=== PATIENT | female | born 1950 | race Caucasian/White ===

== ENCOUNTER 2019-02-16 11:38 | Inpatient (IN) | payer MEDICARE, OTHER ==
[~2019-02-16] VITALS: Ht 167.6 cm; Wt 69.7 kg
[2019-02-16 12:14] LABS: BASO # 0.1 x10^3/uL (0.0-0.2); BASO % 1 % (0-3); EOS # 0.1 x10^3/uL (0.0-0.7); EOS % 1 % (0-3); HEMOGLOBIN 12.8 g/dL (12.0-15.5); LYMPH # 1.5 x10^3/uL (1.0-4.8); LYMPH % 18 % (24-48); MEAN CORPUSCULAR HEMOGLOBIN 28 pg (25-35); MEAN CORPUSCULAR HGB CONC 34 g/dL (31-37); MEAN CORPUSCULAR VOLUME 82 fL (79-100); MONO # 0.5 x10^3/uL (0.0-1.1); MONO % 6 % (0-9); NEUT # 6.5 x10^3uL (1.8-7.7); NEUT % 75 % (31-73); PLATELET COUNT 169 x10^3/uL (140-400); RED BLOOD COUNT 4.65 x10^6/uL (3.50-5.40); RED CELL DISTRIBUTION WIDTH 16.1 % (11.5-14.5); WHITE BLOOD COUNT 8.7 x10^3/uL (4.0-11.0)
[2019-02-16 12:18] LABS: BILIRUBIN,URINE NEG (NEG); CLARITY,URINE CLEAR; COLOR,URINE STRAW; GLUCOSE,URINE NEG (NEG); UROBILINOGEN,URINE 0.2 mg/dL (0.2 mg/dL)
[2019-02-16 12:19] LABS: BACTERIA,URINE 0 /HPF (0-FEW); NITRITE,URINE NEG (NEG); RBC,URINE 0 /HPF (0-2); SQUAMOUS EPITHELIAL CELL,UR OCC /LPF; WBC,URINE 0 /HPF (0-4)
[2019-02-16 12:27] LABS: ALBUMIN 3.6 g/dL (3.4-5.0); ALBUMIN/GLOBULIN RATIO 1.1 (1.0-1.7); CALCIUM 9.1 mg/dL (8.5-10.1); CREATININE 0.8 mg/dL (0.6-1.0); GFR 71.8; MAGNESIUM 1.8 mg/dL (1.8-2.4); POTASSIUM 4.4 mmol/L (3.5-5.1); TOTAL BILIRUBIN 0.4 mg/dL (0.2-1.0); TOTAL PROTEIN 6.8 g/dL (6.4-8.2)
--- NOTE | 2019-02-16 12:33 | PHYS DOC ---
Adult General Chief Complaint Chief Complaint: PSYCH EVALUATION HPI HPI 68-year-old female presents for medical clearance to [facility] admission. Patient was reportedly having severe anxiety, panic attacks, and hallucinating. She has some baseline memory impairment. Patient tells me that she does not have any medical complaints. Review of Systems Review of Systems Constitutional: Denies fever or chills [] Eyes: Denies change in visual acuity, redness, or eye pain [] HENT: Denies nasal congestion or sore throat [] Respiratory: Denies cough or shortness of breath [] Cardiovascular: No additional information not addressed in HPI [] GI: Denies abdominal pain, nausea, vomiting, bloody stools or diarrhea [] : Denies dysuria or hematuria [] Musculoskeletal: Denies back pain or joint pain [] Integument: Denies rash or skin lesions [] Neurologic: Denies headache, focal weakness or sensory changes [] Endocrine: Denies polyuria or polydipsia [] All other systems were reviewed and found to be within normal limits, except as documented in this note. Allergies Allergies Allergies Coded Allergies Type Severity Reaction Last Updated Verified Penicillins Allergy Unknown 02/16/19 Yes Sulfa (Sulfonamide Antibiotics) Allergy Unknown 02/16/19 Yes clindamycin Allergy Unknown 02/16/19 Yes morphine Allergy Unknown 02/16/19 Yes Physical Exam Physical Exam Constitutional: Well developed, well nourished, no acute distress, non-toxic appearance. [] HENT: Normocephalic, atraumatic, bilateral external ears normal, oropharynx moist, no oral exudates, nose normal. [] Eyes: PERRLA, EOMI, conjunctiva normal, no discharge. [] Neck: Normal range of motion, no tenderness, supple, no stridor. [] Cardiovascular:Heart rate regular rhythm, no murmur [] Lungs & Thorax: Bilateral breath sounds clear to auscultation [] Abdomen: Bowel sounds normal, soft, no tenderness, no masses, no pulsatile masses. [] Skin: Warm, dry, no erythema, no rash. [] Back: No tenderness, no CVA tenderness. [] Extremities: Left below the knee amputation with prosthesis[] Neurologic: Alert and oriented X 3, normal motor function, normal sensory function, no focal deficits noted. [] Psychologic: Affect normal, judgement normal, mood normal. [] Current Patient Data Lab Results Laboratory Tests Test 02/16/19 11:41 02/16/19 11:50 Urine Collection Type Unknown Urine Color Straw Urine Clarity Clear Urine pH 6.0 Urine Specific [place] <=1.005 Urine Protein Neg (NEG-TRACE) Urine Glucose (UA) Neg mg/dL (NEG) Urine Ketones (Stick) Neg mg/dL (NEG) Urine Blood Neg (NEG) Urine Nitrite Neg (NEG) Urine Bilirubin Neg (NEG) Urine Urobilinogen Dipstick 0.2 mg/dL (0.2 mg/dL) Urine Leukocyte Esterase Neg (NEG) Urine RBC 0 /HPF (0-2) Urine WBC 0 /HPF (0-4) Urine Squamous Epithelial Cells Occ /LPF Urine Transitional Epithelial Cells Occ /LPF Urine Bacteria 0 /HPF (0-FEW) White Blood Count 8.7 x10^3/uL (4.0-11.0) Red Blood Count 4.65 x10^6/uL (3.50-5.40) Hemoglobin 12.8 g/dL (12.0-15.5) Hematocrit 38.0 % (36.0-47.0) Mean Corpuscular Volume 82 fL (79-100) Mean Corpuscular Hemoglobin 28 pg (25-35) Mean Corpuscular Hemoglobin Concent 34 g/dL (31-37) Red Cell Distribution Width 16.1 % (11.5-14.5) H Platelet Count 169 x10^3/uL (140-400) Neutrophils (%) (Auto) 75 % (31-73) H Lymphocytes (%) (Auto) 18 % (24-48) L Monocytes (%) (Auto) 6 % (0-9) Eosinophils (%) (Auto) 1 % (0-3) Basophils (%) (Auto) 1 % (0-3) Neutrophils # (Auto) 6.5 x10^3uL (1.8-7.7) Lymphocytes # (Auto) 1.5 x10^3/uL (1.0-4.8) Monocytes # (Auto) 0.5 x10^3/uL (0.0-1.1) Eosinophils # (Auto) 0.1 x10^3/uL (0.0-0.7) Basophils # (Auto) 0.1 x10^3/uL (0.0-0.2) Sodium Level 128 mmol/L (136-145) L Potassium Level 4.4 mmol/L (3.5-5.1) Chloride Level 93 mmol/L (98-107) L Carbon Dioxide Level 26 mmol/L (21-32) Anion Gap 9 (6-14) Blood Urea Nitrogen 14 mg/dL (7-20) Creatinine 0.8 mg/dL (0.6-1.0) Estimated GFR (Cockcroft-Gault) 71.8 BUN/Creatinine Ratio 18 (6-20) Glucose Level 95 mg/dL (70-99) Calcium Level 9.1 mg/dL (8.5-10.1) Magnesium Level 1.8 mg/dL (1.8-2.4) Total Bilirubin 0.4 mg/dL (0.2-1.0) Aspartate Amino Transferase (AST) 30 U/L (15-37) Alanine Aminotransferase (ALT) 47 U/L (14-59) Alkaline Phosphatase 94 U/L (46-116) Total Protein 6.8 g/dL (6.4-8.2) Albumin 3.6 g/dL (3.4-5.0) Albumin/Globulin Ratio 1.1 (1.0-1.7) EKG EKG [] Radiology/Procedures Radiology/Procedures [] Course & Med Decision Making Course & Med Decision Making Pertinent Labs and Imaging studies reviewed. (See chart for details) The patient's labs are significant for a low sodium of 128, but no other abnormalities. Her urine is negative for infection. Her EKG is unremarkable. She is medically stable for behavioral health admission. [] Dragon Disclaimer Dragon Disclaimer This electronic medical record was generated, in whole or in part, using a voice recognition dictation system. Departure Departure: Impression: Primary Impression: Medical clearance for psychiatric admission Disposition: ADMITTED INPATIENT Condition: STABLE Referrals: JUDI BENNETT (PCP) LOBITO HALL DO Feb 16, 2019 12:33
[2019-02-16 14:58] VITALS: BP 153/97
[2019-02-16] MEDS ORDERED: MAG HYDROX/AL HYDROX/SIMETH 30 ML ORAL.SUSP PO PRN ×2 (15:00)
[2019-02-16] MEDS ORDERED: ACETAMINOPHEN 325 MG TABLET PO PRN ×3 (15:00→15:45)
[2019-02-16] MEDS ORDERED: METHYL SALICYLATE/MENTHOL TOPICAL OINTMENT 29GM TUBE. TP PRN (15:00)
[2019-02-16] MEDS ORDERED: MAGNESIUM HYDROXIDE 2,400 MG/30 ML ORAL.SUSP. PO PRN (15:00)
[2019-02-16] MEDS ORDERED: GLYC1SUP31 RC (15:26)
[2019-02-16] MEDS ORDERED: DOCU-109 PO (15:26)
[2019-02-16] MEDS ORDERED: SERT25TA PO (15:26)
[2019-02-16] MEDS ORDERED: DONE5TAB56 PO (15:26)
[2019-02-16] MEDS ORDERED: OLOP2.5D EACHEYE (15:26)
[2019-02-16] MEDS ORDERED: POLY17PO5 PO (15:26)
[2019-02-16] MEDS ORDERED: CETI10TA22 PO (15:26)
[2019-02-16] MEDS ORDERED: LEVO50TA5 PO (15:26)
[2019-02-16] MEDS ORDERED: PRAZ5CAP2 PO (15:26)
[2019-02-16] MEDS ORDERED: MULT1TAB52 PO (15:26)
[2019-02-16] MEDS ORDERED: FAMO-63 PO (15:26)
[2019-02-16] MEDS ORDERED: RISP2TAB33 PO (15:26)
[2019-02-16] MEDS ORDERED: ALEN70TA3 PO (15:26)
[2019-02-16] MEDS ORDERED: FLUT9.9S NS (15:26)
[2019-02-16] MEDS ORDERED: MOME17SP NS (15:26)
[2019-02-16] MEDS ORDERED: CALC-30 PO (15:26)
[2019-02-16] MEDS ORDERED: MAG355OR12 PO (15:26)
[2019-02-16] MEDS ORDERED: MONT10TA9 PO (15:26)
[2019-02-16] MEDS ORDERED: NAPR-514 PO (15:26)
[2019-02-16] MEDS ORDERED: CLON0.5T11 PO ×2 (15:26)
[2019-02-16] MEDS ORDERED: ACET325T9 PO (15:26)
[2019-02-16] MEDS ORDERED: FLUO10CA13 PO (15:26)
[2019-02-16] MEDS ORDERED: TRAZ-120 PO (15:26)
[2019-02-16] MEDS ORDERED: DOCUSATE SODIUM 100 MG CAPSULE PO PRN (16:00)
[2019-02-16 16:03] VITALS: BP 135/83
[2019-02-16] MEDS ORDERED: GLYCERIN ADULT 1 SUPP.RECT. PR PRN (16:15)
[2019-02-16] MEDS: KETOTIFEN FUMARATE 0.025% OPHT SOLUTION BOTTLE. OU SCH (20:20)
[2019-02-16] MEDS: FLUTICASONE 50MCG/NASAL SPRAY 16GM BOTTLE. NS SCH (20:20)
[2019-02-16] MEDS: MONTELUKAST 10 MG TABLET. PO SCH (20:20)
[2019-02-16] MEDS: risperiDONE 2 MG TABLET. PO SCH (20:20)
[2019-02-16] MEDS: traZODone 50 MG TABLET. PO SCH (20:20)
[2019-02-16] MEDS: clonazePAM 0.5 MG TABLET PO SCH (20:20)
[2019-02-16] MEDS: PRAZOSIN 5 MG CAPSULE. PO SCH (20:21)
[2019-02-16] MEDS: PRAZOSIN 1 MG CAPSULE. PO SCH (20:21)
[2019-02-16] MEDS ORDERED: FAMOTIDINE 20 MG TABLET PO PRN (21:00)
--- NOTE | 2019-02-16 21:56 | EKG ---
[address] [address] Test Date: 2019-02-16 Test Time: 12:19:55 Pat Name: INEZ BARRIOS Department: Room: [address] [place] [address] Gender: F Acute Coordinator: : 1950 Requested By: LOBITO HALL Order Number: [id number] Reading MD: Gigi Devine MD Measurements Intervals [place] Rate: 83 P: 59 FL: 180 QRS: 56 QRSD: 70 T: 47 QT: 370 QTc: 435 Interpretive Statements SINUS RHYTHM Electronically Signed On 02-19-2019 10:06:04 CDT by Gigi Devine MD
--- NOTE | 2019-02-16 22:36 | PDOC ---
Exam Note: Denzel Note: Please also refer to the separate dictated note~for this date of service dictated separately. Discussed the patient with Nursing staff reviewed the chart.~Reviewed interim history and current functioning. Reviewed vital signs,~ Labs/ Radiology~and current medications noted below. Continue current treatment with the changes noted in the dictated addendum note Assessment: Vital Signs: Vital Signs Date Time Temp Pulse Resp B/P (MAP) Pulse Ox O2 Delivery O2 Flow Rate FiO2 02/16/19 20:21 68 135/83 02/16/19 16:03 98.3 16 96 Room Air Labs: Laboratory Tests Test 02/16/19 11:41 02/16/19 11:50 Urine Collection Type Unknown Urine Color Straw Urine Clarity Clear Urine pH 6.0 Urine Specific [place] <=1.005 Urine Protein Neg (NEG-TRACE) Urine Glucose (UA) Neg mg/dL (NEG) Urine Ketones (Stick) Neg mg/dL (NEG) Urine Blood Neg (NEG) Urine Nitrite Neg (NEG) Urine Bilirubin Neg (NEG) Urine Urobilinogen Dipstick 0.2 mg/dL (0.2 mg/dL) Urine Leukocyte Esterase Neg (NEG) Urine RBC 0 /HPF (0-2) Urine WBC 0 /HPF (0-4) Urine Squamous Epithelial Cells Occ /LPF Urine Transitional Epithelial Cells Occ /LPF Urine Bacteria 0 /HPF (0-FEW) White Blood Count 8.7 x10^3/uL (4.0-11.0) Red Blood Count 4.65 x10^6/uL (3.50-5.40) Hemoglobin 12.8 g/dL (12.0-15.5) Hematocrit 38.0 % (36.0-47.0) Mean Corpuscular Volume 82 fL (79-100) Mean Corpuscular Hemoglobin 28 pg (25-35) Mean Corpuscular Hemoglobin Concent 34 g/dL (31-37) Red Cell Distribution Width 16.1 % (11.5-14.5) H Platelet Count 169 x10^3/uL (140-400) Neutrophils (%) (Auto) 75 % (31-73) H Lymphocytes (%) (Auto) 18 % (24-48) L Monocytes (%) (Auto) 6 % (0-9) Eosinophils (%) (Auto) 1 % (0-3) Basophils (%) (Auto) 1 % (0-3) Neutrophils # (Auto) 6.5 x10^3uL (1.8-7.7) Lymphocytes # (Auto) 1.5 x10^3/uL (1.0-4.8) Monocytes # (Auto) 0.5 x10^3/uL (0.0-1.1) Eosinophils # (Auto) 0.1 x10^3/uL (0.0-0.7) Basophils # (Auto) 0.1 x10^3/uL (0.0-0.2) Sodium Level 128 mmol/L (136-145) L Potassium Level 4.4 mmol/L (3.5-5.1) Chloride Level 93 mmol/L (98-107) L Carbon Dioxide Level 26 mmol/L (21-32) Anion Gap 9 (6-14) Blood Urea Nitrogen 14 mg/dL (7-20) Creatinine 0.8 mg/dL (0.6-1.0) Estimated GFR (Cockcroft-Gault) 71.8 BUN/Creatinine Ratio 18 (6-20) Glucose Level 95 mg/dL (70-99) Calcium Level 9.1 mg/dL (8.5-10.1) Magnesium Level 1.8 mg/dL (1.8-2.4) Total Bilirubin 0.4 mg/dL (0.2-1.0) Aspartate Amino Transferase (AST) 30 U/L (15-37) Alanine Aminotransferase (ALT) 47 U/L (14-59) Alkaline Phosphatase 94 U/L (46-116) Total Protein 6.8 g/dL (6.4-8.2) Albumin 3.6 g/dL (3.4-5.0) Albumin/Globulin Ratio 1.1 (1.0-1.7) Current Medications: Meds: Current Medications Acetaminophen (Tylenol) 650 mg PRN Q6HRS PRN PO PAIN / TEMP; Start 02/16/19 at 15:00; Stop 02/16/19 at 15:40; Status DC Multi-Ingredient Ointment (Analgesic Fountain) 1 dacia PRN QID PRN TP MUSCLE PAIN; Start 02/16/19 at 15:00 Al Hydroxide/Mg Hydroxide (Mylanta Plus Xs) 15 ml PRN AFTMEALHC PRN PO DYSPEPSIA; Start 02/16/19 at 15:00; Stop 02/16/19 at 15:41; Status DC Magnesium Hydroxide (Milk Of Magnesia) 2,400 mg PRN QHS PRN PO CONSTIPATION; Start 02/16/19 at 15:00 Acetaminophen (Tylenol) 650 mg PRN Q4HRS PRN PO PAIN / TEMP; Start 02/16/19 at 15:00; Stop 02/16/19 at 15:41; Status DC Clonazepam (KlonoPIN) 0.5 mg HS PO Last administered on 02/16/19at 20:20; Start 02/16/19 at 21:00 Clonazepam (KlonoPIN) 0.5 mg PRN Q6HRS PRN PO ANXIETY / AGITATION; Start at 15:00 Al Hydroxide/Mg Hydroxide (Mylanta Plus Xs) 15 ml PRN AFTMEALHC PRN PO DYSPEPSIA; Start 02/16/19 at 15:00 Alendronate Sodium (Fosamax) 70 mg WEEKLY PO ; Start 02/23/19 at 09:00 Calcium/Vitamin D (Oscal D 500mg/ 200uts) 2 tab DAILY PO ; Start 02/17/19 at 09: 00 Cetirizine HCl (ZyrTEC) 10 mg DAILY PO ; Start 02/17/19 at 09:00 Docusate Sodium (Colace) 100 mg PRN Q12HR PRN PO CONSTIPATION; Start 02/16/19 at 16:00 Donepezil HCl (Aricept) 5 mg DAILY PO ; Start 02/17/19 at 09:00 Famotidine (Pepcid) 10 mg PRN Q12HR PRN PO GI UPSET; Start 02/16/19 at 21:00 Fluoxetine HCl (PROzac) 10 mg DAILY PO ; Start 02/17/19 at 09:00 Fluticasone Propionate (Flonase) 2 spray BID NS Last administered on 02/16/19at 20:20; Start 02/16/19 at 21:00 Glycerin (Sani-Supp Adult) 1 supp PRN DAILY PRN [place] CONSTIPATION; Start at 16:15 Levothyroxine Sodium (Synthroid) 50 mcg DAILY06 PO ; Start 02/17/19 at 06:00 Non-Formulary Medication (Mometasone Furoate (Nasonex)) 2 sprays DAILY NS ; Start 02/17/19 at 09:00; Stop 02/17/19 at 09:00; Status DC Montelukast Sodium (Singulair) 10 mg QHS PO Last administered on 02/16/19at 20: 20; Start 02/16/19 at 21:00 Multivitamins/ Calcium (Thera-M Plus) 1 tab DAILY PO ; Start 02/17/19 at 09:00 Naproxen (Naprosyn) 500 mg PRN Q12HR PRN PO PAIN; Start 02/16/19 at 16:15 Ketotifen Fumarate (Zaditor) 1 drop BID OU Last administered on 02/16/19at 20:20 ; Start 02/16/19 at 21:00 Polyethylene Glycol (miraLAX) 17 gm DAILY PO ; Start 02/17/19 at 09:00 Prazosin HCl (Minipress) 5 mg QHS PO Last administered on 02/16/19at 20:21; Start 02/16/19 at 21:00 Risperidone (RisperDAL) 2 mg BID PO Last administered on 02/16/19at 20:20; Start 02/16/19 at 21:00 Sertraline HCl (Zoloft) 25 mg DAILY PO ; Start 02/17/19 at 09:00 Trazodone HCl (Desyrel) 50 mg HS PO Last administered on 02/16/19at 20:20; Start 02/16/19 at 21:00 Acetaminophen (Tylenol) 650 mg PRN Q4HRS PRN PO PAIN / TEMP; Start 02/16/19 at 15:45 Prazosin HCl (Minipress) 2 mg HS PO Last administered on 02/16/19at 20:21; Start 02/16/19 at 21:00 Active Scripts Active Reported Levothyroxine Sodium 50 Mcg Tablet 50 Mcg PO DAILYAC Clonazepam 0.5 Mg Tablet 0.5 Mg PO PRN Q6HRS PRN Laxative Suppository (Glycerin) 1 Each Supp.rect 1 Each RC PRN DAILY PRN Flonase Allergy Relief (Fluticasone Propionate) 9.9 Ml [place].susp 1 Sprays NS BID Pepcid (Famotidine) 20 Mg Tablet 10 Mg PO PRN Q12HR PRN Multivitamins (Multivitamin) 1 Each Tablet 1 Each PO DAILY Colace (Docusate Sodium) 100 Mg Capsule 100 Mg PO PRN Q12HR PRN Clonazepam 0.5 Mg Tablet 0.5 Mg PO HS Calcium 500 + Vit D 400 Tablet (Calcium Carbonate/Vitamin D3) 1 Each Tablet 2 Each PO DAILY Aricept (Donepezil Hcl) 5 Mg Tablet 5 Mg PO DAILY Fosamax (Alendronate Sodium) 70 Mg Tablet 70 Mg PO WEEKLY Zyrtec (Cetirizine Hcl) 10 Mg Tablet 10 Mg PO DAILY Zoloft (Sertraline Hcl) 25 Mg Tablet 25 Mg PO DAILY Tylenol (Acetaminophen) 325 Mg Tablet 650 Mg PO PRN Q4HRS PRN Trazodone Hcl 50 Mg Tablet 50 Mg PO HS Risperdal (Risperidone) 2 Mg Tablet 2 Mg PO BID Prozac (Fluoxetine Hcl) 10 Mg Capsule 10 Mg PO DAILY Prazosin Hcl 5 Mg Capsule 7 Mg PO HS Miralax (Polyethylene Glycol 3350) 17 Gm Powd.pack 1 Packet PO DAILY Pataday (Olopatadine Hcl) 2.5 Ml Drops 1 Drop EACHEYE DAILY Nasonex (Mometasone Furoate) 17 Gm [place].pump 2 Sprays NS DAILY Naproxen 500 Mg Tablet 500 Mg PO PRN Q12HR PRN Montelukast Sodium Tablet (Montelukast Sodium) 10 Mg Tablet 10 Mg PO HS Maalox Maximum Strength Susp (Mag Hydrox/Al Hydrox/Simeth) 355 Ml Oral.susp 15 Ml PO PRN AFTMEALHC PRN I have reviewed the current psychotropics carefully including drug interactions. Risk benefit ratio favors no change other than as noted in my dictated progress note. Diagnosis: Problems: (1) Anxiety disorder (2) Impulse control disorder (3) Schizoaffective disorder, chronic condition with acute exacerbation JT SPARROW MD Feb 16, 2019 22:36
[2019-02-17 02:10] LABS: HEMOGLOBIN A1C 5.1 % (4.8-5.6)
[2019-02-17 05:47] VITALS: BP 122/83
[2019-02-17] MEDS: LEVOTHYROXINE 50 MCG TABLET PO SCH (05:50)
[2019-02-17 07:16] LABS: THYROXINE 8.3 ug/dL (4.5-12.0)
[2019-02-17] MEDS: KETOTIFEN FUMARATE 0.025% OPHT SOLUTION BOTTLE. OU SCH ×2 (08:22→19:37)
[2019-02-17] MEDS: FLUTICASONE 50MCG/NASAL SPRAY 16GM BOTTLE. NS SCH ×2 (08:22→19:38)
[2019-02-17] MEDS: DONEPEZIL HCL 5 MG TABLET. PO SCH (08:22)
[2019-02-17] MEDS: POLYETHYLENE GLYCOL 3350 17 GM PACKET. PO SCH (08:22)
[2019-02-17] MEDS: CETIRIZINE HCL 10 MG TABLET PO SCH (08:23)
[2019-02-17] MEDS: MULTIVITAMIN with MINERAL TABLET. PO SCH (08:23)
[2019-02-17] MEDS: CALCIUM CARB/VIT D3 500/200 TABLET PO SCH (08:23)
[2019-02-17] MEDS: FLUoxetine HCL 10 MG CAPSULE PO SCH (08:23)
[2019-02-17] MEDS: risperiDONE 2 MG TABLET. PO SCH ×2 (08:23→19:36)
[2019-02-17] MEDS ORDERED: SERTRALINE 25 MG TABLET. PO SCH (09:00)
[2019-02-17] MEDS ORDERED: MOMETASONE FUROATE NS SCH (09:00)
--- NOTE | 2019-02-17 10:08 | HP ---
ADMIT DATE: 02/16/2019 PSYCHIATRIC HISTORY/EVALUATION This late entry 02/16/2019 covers elements not covered in my initial note. SUBJECTIVE: Met with the patient evening of 02/16/2019 at length in her room, previously discussed with Kandice Sun, footwear sales coordinator in 2 or 3 occasions with nursing staff including at admission of the patient. IDENTIFYING DATA: The patient is a 68-year-old female referred to us from [facility] by Dr. Tobias Garay, primary care physician, after she failed tele psychiatry services including psychotherapy and psychotropic medication management weekly done at the facility. The patient has been increasingly obsessive, having anxiety, panic attacks with ''no rationalization.'' She has been hallucinating, refusing meds at times, yelling at staff, delusional, having short-term memory impairment. She has failed outpatient psychiatric interventions resulting in this referral. CHIEF COMPLAINT: ''Yes ____." HISTORY OF PRESENT ILLNESS: The patient reportedly has a history of schizoaffective disorder, bipolar type. She complains of increasing panic anxiety, paranoia recently. She states she was on Zyprexa and this was stopped about 8 months back and symptoms have worsened since then. She is requesting to be put back on this. No active suicidal or homicidal ideation. PAST PSYCHIATRIC HISTORY: As above. MEDICAL HISTORY: Positive for hyponatremia, status post falls, hypothyroidism, osteoporosis, artificial left leg, status post fracture injury and secondary infection about 18 years ago. ACCU-CHEKS: None. DIET: Mechanical soft. Takes medications whole. Ambulates with a cane. UA on 02/16/2019 was negative. CODE STATUS: Full code. ALLERGIES: CLINDAMYCIN, MORPHINE, PENICILLIN, SULFA. SOCIAL HISTORY: The patient states a positive family history of depression in father and brother and second cousin. SOCIAL HISTORY: No history of alcohol, drug abuse, physical, sexual or elder abuse. She is not known to be a perpetrator. 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 REACTION TO HOSPITALIZATION: The patient is accepting of this. ASSETS: The patient is cognitively intact, supportive living at the above facility. REVIEW OF SYSTEMS: Ambulation impaired. No CV, , pulmonary, eye, ENT system symptoms on review. I met with her in her room. She is lying in bed, did set up and contract with me, but is anxious, restless, distractible, constantly moving, rubbing her face intermittently. MENTAL STATUS EXAMINATION: The patient is oriented to herself and situation. She knew the president was president Luz Elena, was aware of the date 02/16/2019. Speech has some latency, coherent. Abstraction fair, computation is impaired, language function intact, attention span short. Mood and affect is somewhat withdrawn and quite paranoid, suspicious. No suicidal or homicidal ideation. LABORATORY DATA: Reviewed. IMPRESSION: Possible bipolar 1 disorder, mixed with psychotic features; anxiety disorder, unspecified; impulse control disorder, unspecified; mild cognitive impairment. Rest as above. PLAN: Admit to the Geropsychiatry Unit at [facility]. I will see the patient daily individually from a psychiatric standpoint, medical status followup with Dr. Edwards. We will observe the patient's baseline then adjust her psychotropics. She is currently on Risperdal 2 mg b.i.d., Zoloft 25 mg a day, Prozac 10 mg a day, Aricept 5 mg a day, trazodone 50 mg at bedtime, Klonopin 0.5 mg at bedtime plus p.r.n. We will go ahead and stop the Zoloft to avoid using two SSRIs in combination, may consider a mood stabilizer and adjusting the Risperdal. Estimated length of stay is 10-12 days. DISPOSITION: Plans back to [facility] at discharge. JT SPARROW MD DR: MINGO/pilar JOB#: [id number] / [id number]
[2019-02-17 10:43] LABS: THYROID STIM HORMONE (TSH) 2.001 uIU/mL (0.358-3.740)
[2019-02-17 16:16] VITALS: BP 113/71
--- NOTE | 2019-02-17 16:57 | CONS ---
DATE OF CONSULTATION: REASON FOR CONSULTATION: Medical management. HISTORY OF PRESENT ILLNESS: The patient is a 68-year-old female patient, who resides at [facility] and who was referred [facility] by her primary care physician after she has failed tele psychiatry services including psychotherapy and psychotropic medication management weekly done at the facility. The patient has been increasingly obsessive, having anxiety, panic attack with no rationalization. She has been hallucinating, refusing medication at that time, yelling at staff, delusional, having short-term memory impairment. She has failed outpatient psychiatric 7 days intervention and therefore she was admitted for inpatient psychiatric stabilization. PAST PSYCHIATRIC HISTORY: Significant for the fact that she has a Schizoaffective disorder, bipolar type. She has been also complaining of increasing panic attack, anxiety, and paranoia recently. According to the patient, she was on Zyprexa that was stopped and her symptoms have worsened since then. There was no active suicidal or homicidal ideation. PAST MEDICAL HISTORY: Significant for hyponatremia, hypothyroidism, glaucoma, gastroesophageal reflux disease, osteoporosis, and osteoarthritis. PAST SURGICAL HISTORY: Significant for left below-knee amputation and has an artificial prosthesis. ALLERGIES: She is allergic to CLINDAMYCIN, MORPHINE, PENICILLIN, AND SULFA. FAMILY HISTORY: Noncontributory. SOCIAL HISTORY: She has been a resident at [facility]. She has 3 children of her own. She does not smoke or drink alcohol. She used to be a occupational therapy teacher. MEDICATIONS: She is currently on following medications: She is on cetirizine 10 mg once a day, Aricept 5 mg daily, prazosin 7 mg p.o. at bedtime, naproxen 500 mg every 12 hours as needed, acetaminophen 650 mg every 4 hours, clonazepam 0.5 mg at bedtime, clonazepam 0.5 mg every 6 hours as needed, fluoxetine for Prozac 10 mg once a day, sertraline for Zoloft 25 mg daily, trazodone 50 mg at bedtime. She is on risperidone 2 mg twice a day, calcium carbonate with vitamin D3 two tablets daily. She is on montelukast 10 mg once a day, olopatadine at 1 drop to both eyes daily, Flonase 1 spray to each nostril twice a day, Nasonex 2 sprays to each nostril daily, Maalox 15 mL after meals and bedtime, Colace 100 mg twice a day, Glycerin Suppositories rectally daily p.r.n. for constipation, polyethylene glycol 17 grams daily, famotidine 20 mg twice a day, levothyroxine 50 mcg once a day, multivitamin 1 tablet once a day with alendronate for Fosamax 70 mg once a week. PHYSICAL EXAMINATION: GENERAL: When I examined her, the patient was sitting comfortably in her chair, in no apparent distress. She was pale, but not jaundiced, cyanosis, or thyromegaly. No jugular venous distension. No limb edema. VITAL SIGNS: Her heart rate was 94, blood pressure 122/83, temperature was 98.9, respiratory rate was 18 and oxygen saturation was 94%. HEAD, EYES, NOSE AND THROAT: Showed normocephalic, atraumatic. NECK: Supple. HEART: Showed normal first and second heart sounds with no gallop, rub or murmur. CHEST: Clear to auscultation. No crepitation or rhonchi. ABDOMEN: Distended, soft, nontender. NEUROLOGIC: She is awake, alert, responding appropriately. All cranial nerves intact. EXTREMITIES: She moves extremities without difficulty. She ambulates with a walker. LABORATORY DATA: Her lab work showed a serum sodium of 128, potassium was 4.4, chloride 93, bicarbonate 26, anion gap of 9, BUN 14, creatinine 0.8, estimated GFR was 72 mL per minute. Her glucose was 95, calcium was 9.1. Her hemoglobin A1c was 5.1%. Her magnesium was 1.8. Serum iron 63, TIBC was high at 351 and iron saturation was 18%. Her total bilirubin, AST, ALT, alkaline phosphatase were normal. Total protein was 6.8, albumin 3.6. Her serum triglycerides were 169, total cholesterol 197, LDL was 115, VLDL was 33, HDL was 49 and the ratio was 4. Her TSH was 2 with normal total T4 and total T3. Her white cell count was 8700, hemoglobin 13, hematocrit 38, MCV 82, and platelet count of 169,000. Her urinalysis was essentially unremarkable. Urine was straw colored, clear with a pH of 6, specific gravity 1.005. The urine was negative for protein, glucose, ketones, blood nitrite and leukocyte esterase. There are no rbc's, no wbc's, and no bacteria. IMPRESSION: In summary, this is a 68-year-old female patient, a resident at [facility], who was admitted on account of the patient has been increasingly obsessive, having anxiety, panic attack with no rationalization. She has been hallucinating, refusing meds at times, yelling at staff, delusional, having short-term memory impairment. All this in the background of schizoaffective disorder, bipolar type. She is here for inpatient psychiatric stabilization. Medically, she apparently has chronic hyponatremia, hypothyroidism, osteoporosis, glaucoma and gastroesophageal reflux disease. Her vital signs are stable and reviewed all her medication and this seems to be also well within acceptable range. I will follow all the lab works that are still pending at the time of this dictation and make any necessary recommendation. Thank you, Dr. Barton for allowing me to participate in the care of this patient. CAMRYN ORTEGA MD DR: ESTEFANI/pilar JOB#: [id number] / [id number]
[2019-02-17] MEDS: MONTELUKAST 10 MG TABLET. PO SCH (19:36)
[2019-02-17] MEDS: clonazePAM 0.5 MG TABLET PO SCH (19:36)
[2019-02-17] MEDS: traZODone 50 MG TABLET. PO SCH (19:37)
[2019-02-17] MEDS: PRAZOSIN 5 MG CAPSULE. PO SCH (19:37)
[2019-02-17] MEDS: PRAZOSIN 1 MG CAPSULE. PO SCH (19:37)
--- NOTE | 2019-02-17 23:02 | PDOC ---
Exam Note: Denzel Note: Please also refer to the separate dictated note~for this date of service dictated separately.~Patient seen individually. Discussed the patient with Nursing staff reviewed the chart.~Reviewed interim history and current functioning. Reviewed vital signs,~Labs/ Radiology~and current medications noted below. Continue current treatment with the changes noted in the dictated addendum note Assessment: Vital Signs: Vital Signs Date Time Temp Pulse Resp B/P (MAP) Pulse Ox O2 Delivery O2 Flow Rate FiO2 02/17/19 19:37 69 113/71 02/17/19 16:16 98.0 18 95 02/16/19 16:03 Room Air I&O Intake and Output 02/17/19 07:00 Intake Total 120 ml Balance 120 ml Intake Oral 120 ml Current Medications: Meds: Current Medications Acetaminophen (Tylenol) 650 mg PRN Q6HRS PRN PO PAIN / TEMP; Start 02/16/19 at 15:00; Stop 02/16/19 at 15:40; Status DC Multi-Ingredient Ointment (Analgesic [place]) 1 dacia PRN QID PRN TP MUSCLE PAIN; Start 02/16/19 at 15:00 Al Hydroxide/Mg Hydroxide (Mylanta Plus Xs) 15 ml PRN AFTMEALHC PRN PO DYSPEPSIA; Start 02/16/19 at 15:00; Stop 02/16/19 at 15:41; Status DC Magnesium Hydroxide (Milk Of Magnesia) 2,400 mg PRN QHS PRN PO CONSTIPATION; Start 02/16/19 at 15:00 Acetaminophen (Tylenol) 650 mg PRN Q4HRS PRN PO PAIN / TEMP; Start 02/16/19 at 15:00; Stop 02/16/19 at 15:41; Status DC Clonazepam (KlonoPIN) 0.5 mg HS PO Last administered on 02/17/19at 19:36; Start 02/16/19 at 21:00 Clonazepam (KlonoPIN) 0.5 mg PRN Q6HRS PRN PO ANXIETY / AGITATION; Start at 15:00 Al Hydroxide/Mg Hydroxide (Mylanta Plus Xs) 15 ml PRN AFTMEALHC PRN PO DYSPEPSIA; Start 02/16/19 at 15:00 Alendronate Sodium (Fosamax) 70 mg WEEKLY PO ; Start 02/23/19 at 09:00 Calcium/Vitamin D (Oscal D 500mg/ 200uts) 2 tab DAILY PO Last administered on 08:23; Start 02/17/19 at 09:00 Cetirizine HCl (ZyrTEC) 10 mg DAILY PO Last administered on 02/17/19 08:23; Start 02/17/19 at 09:00 Docusate Sodium (Colace) 100 mg PRN Q12HR PRN PO CONSTIPATION; Start 02/16/19 at 16:00 Donepezil HCl (Aricept) 5 mg DAILY PO Last administered on 02/17/19 08:22; Start 02/17/19 at 09:00 Famotidine (Pepcid) 10 mg PRN Q12HR PRN PO GI UPSET; Start 02/16/19 at 21:00 Fluoxetine HCl (PROzac) 10 mg DAILY PO Last administered on 02/17/19 08:23; Start 02/17/19 at 09:00 Fluticasone Propionate (Flonase) 2 spray BID NS Last administered on 02/17/19 19:38; Start 02/16/19 at 21:00 Glycerin (Sani-Supp Adult) 1 supp PRN DAILY PRN [place] CONSTIPATION; Start at 16:15 Levothyroxine Sodium (Synthroid) 50 mcg DAILY06 PO Last administered on at 05:50; Start 02/17/19 at 06:00 Non-Formulary Medication (Mometasone Furoate (Nasonex)) 2 sprays DAILY NS ; Start 02/17/19 at 09:00; Stop 02/17/19 at 09:00; Status DC Montelukast Sodium (Singulair) 10 mg QHS PO Last administered on 02/17/19 19: 36; Start 02/16/19 at 21:00 Multivitamins/ Calcium (Thera-M Plus) 1 tab DAILY PO Last administered on 08:23; Start 02/17/19 at 09:00 Naproxen (Naprosyn) 500 mg PRN Q12HR PRN PO PAIN; Start 02/16/19 at 16:15 Ketotifen Fumarate (Zaditor) 1 drop BID OU Last administered on 02/17/19at 19:37 ; Start 02/16/19 at 21:00 Polyethylene Glycol (miraLAX) 17 gm DAILY PO Last administered on 02/17/19 08: 22; Start 02/17/19 at 09:00 Prazosin HCl (Minipress) 5 mg QHS PO Last administered on 02/17/19at 19:37; Start 02/16/19 at 21:00 Risperidone (RisperDAL) 2 mg BID PO Last administered on 02/17/19 19:36; Start 02/16/19 at 21:00 Sertraline HCl (Zoloft) 25 mg DAILY PO Last administered on 02/17/19at 08:23; Start 02/17/19 at 09:00; Stop 02/17/19 at 10:17; Status DC Trazodone HCl (Desyrel) 50 mg HS PO Last administered on 02/17/19at 19:37; Start 02/16/19 at 21:00 Acetaminophen (Tylenol) 650 mg PRN Q4HRS PRN PO PAIN / TEMP; Start 02/16/19 at 15:45 Prazosin HCl (Minipress) 2 mg HS PO Last administered on 02/17/19at 19:37; Start 02/16/19 at 21:00 Active Scripts Active Reported Levothyroxine Sodium 50 Mcg Tablet 50 Mcg PO DAILYAC Clonazepam 0.5 Mg Tablet 0.5 Mg PO PRN Q6HRS PRN Laxative Suppository (Glycerin) 1 Each Supp.rect 1 Each RC PRN DAILY PRN Flonase Allergy Relief (Fluticasone Propionate) 9.9 Ml [place].susp 1 Sprays NS BID Pepcid (Famotidine) 20 Mg Tablet 10 Mg PO PRN Q12HR PRN Multivitamins (Multivitamin) 1 Each Tablet 1 Each PO DAILY Colace (Docusate Sodium) 100 Mg Capsule 100 Mg PO PRN Q12HR PRN Clonazepam 0.5 Mg Tablet 0.5 Mg PO HS Calcium 500 + Vit D 400 Tablet (Calcium Carbonate/Vitamin D3) 1 Each Tablet 2 Each PO DAILY Aricept (Donepezil Hcl) 5 Mg Tablet 5 Mg PO DAILY Fosamax (Alendronate Sodium) 70 Mg Tablet 70 Mg PO WEEKLY Zyrtec (Cetirizine Hcl) 10 Mg Tablet 10 Mg PO DAILY Zoloft (Sertraline Hcl) 25 Mg Tablet 25 Mg PO DAILY Tylenol (Acetaminophen) 325 Mg Tablet 650 Mg PO PRN Q4HRS PRN Trazodone Hcl 50 Mg Tablet 50 Mg PO HS Risperdal (Risperidone) 2 Mg Tablet 2 Mg PO BID Prozac (Fluoxetine Hcl) 10 Mg Capsule 10 Mg PO DAILY Prazosin Hcl 5 Mg Capsule 7 Mg PO HS Miralax (Polyethylene Glycol 3350) 17 Gm Powd.pack 1 Packet PO DAILY Pataday (Olopatadine Hcl) 2.5 Ml Drops 1 Drop EACHEYE DAILY Nasonex (Mometasone Furoate) 17 Gm [place].pump 2 Sprays NS DAILY Naproxen 500 Mg Tablet 500 Mg PO PRN Q12HR PRN Montelukast Sodium Tablet (Montelukast Sodium) 10 Mg Tablet 10 Mg PO HS Maalox Maximum Strength Susp (Mag Hydrox/Al Hydrox/Simeth) 355 Ml [place].susp 15 Ml PO PRN AFTMEALHC PRN I have reviewed the current psychotropics carefully including drug interactions. Risk benefit ratio favors no change other than as noted in my dictated progress note. Diagnosis: Problems: (1) Anxiety disorder (2) Impulse control disorder (3) Schizoaffective disorder, chronic condition with acute exacerbation JT SPARROW MD Feb 17, 2019 23:02
[2019-02-18] MEDS: LEVOTHYROXINE 50 MCG TABLET PO SCH (06:00)
[2019-02-18 06:09] VITALS: BP 121/80
[2019-02-18] MEDS: KETOTIFEN FUMARATE 0.025% OPHT SOLUTION BOTTLE. OU SCH ×2 (08:04→20:31)
[2019-02-18] MEDS: FLUTICASONE 50MCG/NASAL SPRAY 16GM BOTTLE. NS SCH ×2 (08:05→20:31)
[2019-02-18] MEDS: DONEPEZIL HCL 5 MG TABLET. PO SCH (08:05)
[2019-02-18] MEDS: MULTIVITAMIN with MINERAL TABLET. PO SCH (08:08)
[2019-02-18] MEDS: risperiDONE 2 MG TABLET. PO SCH ×2 (08:08→20:03)
[2019-02-18] MEDS: CALCIUM CARB/VIT D3 500/200 TABLET PO SCH (08:08)
[2019-02-18] MEDS: CETIRIZINE HCL 10 MG TABLET PO SCH (08:08)
[2019-02-18] MEDS: POLYETHYLENE GLYCOL 3350 17 GM PACKET. PO SCH (08:08)
[2019-02-18] MEDS: FLUoxetine HCL 10 MG CAPSULE PO SCH (08:08)
[2019-02-18] MEDS ORDERED: DIVALPROEX 125 MG CAP.SPRINK PO SCH ×2 (09:00)
[2019-02-18 16:36] VITALS: BP 91/66
[2019-02-18] MEDS: DIVALPROEX 125 MG CAP.SPRINK PO SCH (17:46)
[2019-02-18] MEDS: clonazePAM 0.5 MG TABLET PO SCH (20:02)
[2019-02-18] MEDS: traZODone 50 MG TABLET. PO SCH (20:03)
[2019-02-18] MEDS: MONTELUKAST 10 MG TABLET. PO SCH (20:04)
[2019-02-18] MEDS: PRAZOSIN 1 MG CAPSULE. PO SCH (20:32)
[2019-02-18] MEDS: PRAZOSIN 5 MG CAPSULE. PO SCH (20:32)
--- NOTE | 2019-02-18 22:36 | PDOC ---
Exam Note: Denzel Note: Please also refer to the separate dictated note~for this date of service dictated separately.~Patient seen individually. Discussed the patient with Nursing staff reviewed the chart.~Reviewed interim history and current functioning. Reviewed vital signs,~Labs/ Radiology~and current medications noted below. Continue current treatment with the changes noted in the dictated addendum note Assessment: Vital Signs: Vital Signs Date Time Temp Pulse Resp B/P (MAP) Pulse Ox O2 Delivery O2 Flow Rate FiO2 02/18/19 20:32 81 124/85 02/18/19 16:36 97.2 18 98 Room Air I&O Intake and Output 02/18/19 07:00 Intake Total 960 ml Balance 960 ml Intake Oral 960 ml Current Medications: Meds: Current Medications Acetaminophen (Tylenol) 650 mg PRN Q6HRS PRN PO PAIN / TEMP; Start 02/16/19 at 15:00; Stop 02/16/19 at 15:40; Status DC Multi-Ingredient Ointment (Analgesic [place]) 1 dacia PRN QID PRN TP MUSCLE PAIN; Start 02/16/19 at 15:00 Al Hydroxide/Mg Hydroxide (Mylanta Plus Xs) 15 ml PRN AFTMEALHC PRN PO DYSPEPSIA; Start 02/16/19 at 15:00; Stop 02/16/19 at 15:41; Status DC Magnesium Hydroxide (Milk Of Magnesia) 2,400 mg PRN QHS PRN PO CONSTIPATION; Start 02/16/19 at 15:00 Acetaminophen (Tylenol) 650 mg PRN Q4HRS PRN PO PAIN / TEMP; Start 02/16/19 at 15:00; Stop 02/16/19 at 15:41; Status DC Clonazepam (KlonoPIN) 0.5 mg HS PO Last administered on 02/18/19at 20:02; Start 02/16/19 at 21:00 Clonazepam (KlonoPIN) 0.5 mg PRN Q6HRS PRN PO ANXIETY / AGITATION; Start at 15:00 Al Hydroxide/Mg Hydroxide (Mylanta Plus Xs) 15 ml PRN AFTMEALHC PRN PO DYSPEPSIA; Start 02/16/19 at 15:00 Alendronate Sodium (Fosamax) 70 mg WEEKLYAC PO ; Start 02/23/19 at 07:00 Calcium/Vitamin D (Oscal D 500mg/ 200uts) 2 tab DAILY PO Last administered on 08:08; Start 02/17/19 at 09:00 Cetirizine HCl (ZyrTEC) 10 mg DAILY PO Last administered on 02/18/19 08:08; Start 02/17/19 at 09:00 Docusate Sodium (Colace) 100 mg PRN Q12HR PRN PO CONSTIPATION; Start 02/16/19 at 16:00 Donepezil HCl (Aricept) 5 mg DAILY PO Last administered on 02/18/19 08:05; Start 02/17/19 at 09:00 Famotidine (Pepcid) 10 mg PRN Q12HR PRN PO GI UPSET; Start 02/16/19 at 21:00 Fluoxetine HCl (PROzac) 10 mg DAILY PO Last administered on 02/18/19 08:08; Start 02/17/19 at 09:00 Fluticasone Propionate (Flonase) 2 spray BID NS Last administered on 02/18/19 20:31; Start 02/16/19 at 21:00 Glycerin (Sani-Supp Adult) 1 supp PRN DAILY PRN [place] CONSTIPATION; Start at 16:15 Levothyroxine Sodium (Synthroid) 50 mcg DAILY06 PO Last administered on 06:00; Start 02/17/19 at 06:00 Non-Formulary Medication (Mometasone Furoate (Nasonex)) 2 sprays DAILY NS ; Start 02/17/19 at 09:00; Stop 02/17/19 at 09:00; Status DC Montelukast Sodium (Singulair) 10 mg QHS PO Last administered on 02/18/19 20: 04; Start 02/16/19 at 21:00 Multivitamins/ Calcium (Thera-M Plus) 1 tab DAILY PO Last administered on 08:08; Start 02/17/19 at 09:00 Naproxen (Naprosyn) 500 mg PRN Q12HR PRN PO PAIN; Start 02/16/19 at 16:15 Ketotifen Fumarate (Zaditor) 1 drop BID OU Last administered on 02/18/19 20:31 ; Start 02/16/19 at 21:00 Polyethylene Glycol (miraLAX) 17 gm DAILY PO Last administered on 02/18/19 08: 08; Start 02/17/19 at 09:00 Prazosin HCl (Minipress) 5 mg QHS PO Last administered on 02/18/19 20:32; Start 02/16/19 at 21:00 Risperidone (RisperDAL) 2 mg BID PO Last administered on 02/18/19 20:03; Start 02/16/19 at 21:00 Sertraline HCl (Zoloft) 25 mg DAILY PO Last administered on 02/17/19 08:23; Start 02/17/19 at 09:00; Stop 02/17/19 at 10:17; Status DC Trazodone HCl (Desyrel) 50 mg HS PO Last administered on 02/18/19 20:03; Start 02/16/19 at 21:00 Acetaminophen (Tylenol) 650 mg PRN Q4HRS PRN PO PAIN / TEMP; Start 02/16/19 at 15:45 Prazosin HCl (Minipress) 2 mg HS PO Last administered on 02/18/19 20:32; Start 02/16/19 at 21:00 Divalproex Sodium (Depakote Sprinkles) 125 mg BID PO ; Start 02/18/19 at 09:00; Stop 02/18/19 at 09:00; Status DC Divalproex Sodium (Depakote Sprinkles) 125 mg BIDAFTMEAL PO Last administered on 02/18/19 08:08; Start 02/18/19 at 09:00; Stop 02/18/19 at 16:40; Status DC Divalproex Sodium (Depakote Sprinkles) 125 mg 0900,1700 PO Last administered on 02/18/19at 17:46; Start 02/18/19 at 17:00 Active Scripts Active Reported Levothyroxine Sodium 50 Mcg Tablet 50 Mcg PO DAILYAC Clonazepam 0.5 Mg Tablet 0.5 Mg PO PRN Q6HRS PRN Laxative Suppository (Glycerin) 1 Each Supp.rect 1 Each RC PRN DAILY PRN Flonase Allergy Relief (Fluticasone Propionate) 9.9 Ml [place].susp 1 Sprays NS BID Pepcid (Famotidine) 20 Mg Tablet 10 Mg PO PRN Q12HR PRN Multivitamins (Multivitamin) 1 Each Tablet 1 Each PO DAILY Colace (Docusate Sodium) 100 Mg Capsule 100 Mg PO PRN Q12HR PRN Clonazepam 0.5 Mg Tablet 0.5 Mg PO HS Calcium 500 + Vit D 400 Tablet (Calcium Carbonate/Vitamin D3) 1 Each Tablet 2 Each PO DAILY Aricept (Donepezil Hcl) 5 Mg Tablet 5 Mg PO DAILY Fosamax (Alendronate Sodium) 70 Mg Tablet 70 Mg PO WEEKLY Zyrtec (Cetirizine Hcl) 10 Mg Tablet 10 Mg PO DAILY Zoloft (Sertraline Hcl) 25 Mg Tablet 25 Mg PO DAILY Tylenol (Acetaminophen) 325 Mg Tablet 650 Mg PO PRN Q4HRS PRN Trazodone Hcl 50 Mg Tablet 50 Mg PO HS Risperdal (Risperidone) 2 Mg Tablet 2 Mg PO BID Prozac (Fluoxetine Hcl) 10 Mg Capsule 10 Mg PO DAILY Prazosin Hcl 5 Mg Capsule 7 Mg PO HS Miralax (Polyethylene Glycol 3350) 17 Gm Powd.pack 1 Packet PO DAILY Pataday (Olopatadine Hcl) 2.5 Ml Drops 1 Drop EACHEYE DAILY Nasonex (Mometasone Furoate) 17 Gm [place].pump 2 Sprays NS DAILY Naproxen 500 Mg Tablet 500 Mg PO PRN Q12HR PRN Montelukast Sodium Tablet (Montelukast Sodium) 10 Mg Tablet 10 Mg PO HS Maalox Maximum Strength Susp (Mag Hydrox/Al Hydrox/Simeth) 355 Ml [place].susp 15 Ml PO PRN AFTMEALHC PRN I have reviewed the current psychotropics carefully including drug interactions. Risk benefit ratio favors no change other than as noted in my dictated progress note. Diagnosis: Problems: (1) Anxiety disorder (2) Impulse control disorder (3) Schizoaffective disorder, chronic condition with acute exacerbation JT SPARROW MD Feb 18, 2019 22:36
[2019-02-19] MEDS: LEVOTHYROXINE 50 MCG TABLET PO SCH (05:12)
[2019-02-19 05:43] VITALS: BP 123/78
[2019-02-19] MEDS: FLUTICASONE 50MCG/NASAL SPRAY 16GM BOTTLE. NS SCH ×2 (08:17→19:28)
[2019-02-19] MEDS: KETOTIFEN FUMARATE 0.025% OPHT SOLUTION BOTTLE. OU SCH ×2 (08:17→19:28)
[2019-02-19] MEDS: DONEPEZIL HCL 5 MG TABLET. PO SCH (08:18)
[2019-02-19] MEDS: POLYETHYLENE GLYCOL 3350 17 GM PACKET. PO SCH (08:18)
[2019-02-19] MEDS: DIVALPROEX 125 MG CAP.SPRINK PO SCH ×2 (08:18→16:32)
[2019-02-19] MEDS: CETIRIZINE HCL 10 MG TABLET PO SCH (08:19)
[2019-02-19] MEDS: risperiDONE 2 MG TABLET. PO SCH ×2 (08:19→19:28)
[2019-02-19] MEDS: CALCIUM CARB/VIT D3 500/200 TABLET PO SCH (08:19)
[2019-02-19] MEDS: FLUoxetine HCL 10 MG CAPSULE PO SCH (08:19)
[2019-02-19] MEDS: MULTIVITAMIN with MINERAL TABLET. PO SCH (08:19)
[2019-02-19] MEDS: NAPROXEN 500 MG TABLET PO PRN (09:46)
[2019-02-19 16:53] VITALS: BP 147/87
[2019-02-19] MEDS: clonazePAM 0.5 MG TABLET PO SCH (19:28)
[2019-02-19] MEDS: PRAZOSIN 5 MG CAPSULE. PO SCH (19:28)
[2019-02-19] MEDS: traZODone 50 MG TABLET. PO SCH (19:28)
[2019-02-19] MEDS: PRAZOSIN 1 MG CAPSULE. PO SCH (19:28)
[2019-02-19] MEDS: MONTELUKAST 10 MG TABLET. PO SCH (19:28)
--- NOTE | 2019-02-19 20:09 | PN ---
DATE: 02/18/2019 PSYCHIATRIC PROGRESS NOTE This is a late entry 02/18/2019 covers elements not covered in my initial note. SUBJECTIVE: I met with the patient in the evening. The patient slept 8-1/4 hours previous night. Overall, doing better, somewhat anxious, obsessing about discharge plans and addressed this with her at great length. REVIEW OF SYSTEMS: Ambulation impaired with a cane. No CV, , pulmonary, eye, ENT system symptoms on review. MENTAL STATUS EXAMINATION: Oriented to reasonably. Speech is coherent, abstraction fair, computation impaired, language function intact, attention span short. Mood and affect remain somewhat anxious, labile, fixated on discharge plans, addressed this with her. LABORATORY DATA: Reviewed. IMPRESSION: Unchanged from initial note. PLAN: No change from initial note. Adjust Depakote to reach therapeutic level. MAN Juan Pablo SPARROW MD DR: MINGO/pilar JOB#: [id number] / [id number]
--- NOTE | 2019-02-19 20:26 | PN ---
DATE: 02/17/2019 PSYCHIATRIC PROGRESS NOTE This late entry 02/17/2019 covers elements not covered in my initial note. SUBJECTIVE: I met with the patient in the evening at length in her room. The patient slept 7-1/2 hours previous night. She has been cooperative, pleasant, compliant with her medications. REVIEW OF SYSTEMS: Ambulation impaired. She does have below knee amputation ambulates with a cane. No CV, , pulmonary, eye, ENT system symptoms on review. MENTAL STATUS EXAMINATION: Reasonably oriented. Speech is coherent. She was crawling to the bathroom as I initially went to her room and stated she routinely does this even prior to admission and handles this fairly well. Abstraction fair, computation impaired, language function intact, attention span short. Mood and affect showing some improvement. LABORATORY DATA: Reviewed. IMPRESSION: Schizoaffective disorder, bipolar type, mixed with psychotic features, in partial remission; anxiety disorder, unspecified. PLAN: Given a history of schizoaffective disorder, she does need to be in a mood stabilizer. We will start Depakote 125 mg sprinkles b.i.d. Check CBC, CMP, valproic acid level in 3 days. Rest unchanged for now. JT SPARROW MD DR: MINGO/pilar JOB#: [id number] / [id number]
--- NOTE | 2019-02-19 22:36 | PDOC ---
Exam Note: Denzel Note: Please also refer to the separate dictated note~for this date of service dictated separately.~Patient seen individually. Discussed the patient with Nursing staff reviewed the chart.~Reviewed interim history and current functioning. Reviewed vital signs,~Labs/ Radiology~and current medications noted below. Continue current treatment with the changes noted in the dictated addendum note Assessment: Vital Signs: Vital Signs Date Time Temp Pulse Resp B/P (MAP) Pulse Ox O2 Delivery O2 Flow Rate FiO2 02/19/19 19:28 70 147/87 02/19/19 16:53 97.9 16 98 02/19/19 05:43 Room Air I&O Intake and Output 02/19/19 07:00 Intake Total 1080 ml Balance 1080 ml Intake Oral 1080 ml Current Medications: Meds: Current Medications Acetaminophen (Tylenol) 650 mg PRN Q6HRS PRN PO PAIN / TEMP; Start 02/16/19 at 15:00; Stop 02/16/19 at 15:40; Status DC Multi-Ingredient Ointment (Analgesic [place]) 1 dacia PRN QID PRN TP MUSCLE PAIN; Start 02/16/19 at 15:00 Al Hydroxide/Mg Hydroxide (Mylanta Plus Xs) 15 ml PRN AFTMEALHC PRN PO DYSPEPSIA; Start 02/16/19 at 15:00; Stop 02/16/19 at 15:41; Status DC Magnesium Hydroxide (Milk Of Magnesia) 2,400 mg PRN QHS PRN PO CONSTIPATION; Start 02/16/19 at 15:00 Acetaminophen (Tylenol) 650 mg PRN Q4HRS PRN PO PAIN / TEMP; Start 02/16/19 at 15:00; Stop 02/16/19 at 15:41; Status DC Clonazepam (KlonoPIN) 0.5 mg HS PO Last administered on 02/19/19at 19:28; Start 02/16/19 at 21:00 Clonazepam (KlonoPIN) 0.5 mg PRN Q6HRS PRN PO ANXIETY / AGITATION; Start at 15:00 Al Hydroxide/Mg Hydroxide (Mylanta Plus Xs) 15 ml PRN AFTMEALHC PRN PO DYSPEPSIA; Start 02/16/19 at 15:00 Alendronate Sodium (Fosamax) 70 mg WEEKLYAC PO ; Start 02/23/19 at 07:00 Calcium/Vitamin D (Oscal D 500mg/ 200uts) 2 tab DAILY PO Last administered on 08:19; Start 02/17/19 at 09:00 Cetirizine HCl (ZyrTEC) 10 mg DAILY PO Last administered on 02/19/19at 08:19; Start 02/17/19 at 09:00 Docusate Sodium (Colace) 100 mg PRN Q12HR PRN PO CONSTIPATION; Start 02/16/19 at 16:00 Donepezil HCl (Aricept) 5 mg DAILY PO Last administered on 02/19/19 08:18; Start 02/17/19 at 09:00 Famotidine (Pepcid) 10 mg PRN Q12HR PRN PO GI UPSET; Start 02/16/19 at 21:00 Fluoxetine HCl (PROzac) 10 mg DAILY PO Last administered on 02/19/19at 08:19; Start 02/17/19 at 09:00 Fluticasone Propionate (Flonase) 2 spray BID NS Last administered on 02/19/19 19:28; Start 02/16/19 at 21:00 Glycerin (Sani-Supp Adult) 1 supp PRN DAILY PRN [place] CONSTIPATION; Start at 16:15 Levothyroxine Sodium (Synthroid) 50 mcg DAILY06 PO Last administered on 05:12; Start 02/17/19 at 06:00 Non-Formulary Medication (Mometasone Furoate (Nasonex)) 2 sprays DAILY NS ; Start 02/17/19 at 09:00; Stop 02/17/19 at 09:00; Status DC Montelukast Sodium (Singulair) 10 mg QHS PO Last administered on 02/19/19 19: 28; Start 02/16/19 at 21:00 Multivitamins/ Calcium (Thera-M Plus) 1 tab DAILY PO Last administered on 08:19; Start 02/17/19 at 09:00 Naproxen (Naprosyn) 500 mg PRN Q12HR PRN PO PAIN Last administered on at 09:46; Start 02/16/19 at 16:15 Ketotifen Fumarate (Zaditor) 1 drop BID OU Last administered on 02/19/19 19:28 ; Start 02/16/19 at 21:00 Polyethylene Glycol (miraLAX) 17 gm DAILY PO Last administered on 02/19/19 08: 18; Start 02/17/19 at 09:00 Prazosin HCl (Minipress) 5 mg QHS PO Last administered on 02/19/19 19:28; Start 02/16/19 at 21:00 Risperidone (RisperDAL) 2 mg BID PO Last administered on 02/19/19 19:28; Start 02/16/19 at 21:00 Sertraline HCl (Zoloft) 25 mg DAILY PO Last administered on 02/17/19 08:23; Start 02/17/19 at 09:00; Stop 02/17/19 at 10:17; Status DC Trazodone HCl (Desyrel) 50 mg HS PO Last administered on 02/19/19 19:28; Start 02/16/19 at 21:00 Acetaminophen (Tylenol) 650 mg PRN Q4HRS PRN PO PAIN / TEMP; Start 02/16/19 at 15:45 Prazosin HCl (Minipress) 2 mg HS PO Last administered on 02/19/19 19:28; Start 02/16/19 at 21:00 Divalproex Sodium (Depakote Sprinkles) 125 mg BID PO ; Start 02/18/19 at 09:00; Stop 02/18/19 at 09:00; Status DC Divalproex Sodium (Depakote Sprinkles) 125 mg BIDAFTMEAL PO Last administered on 02/18/19 08:08; Start 02/18/19 at 09:00; Stop 02/18/19 at 16:40; Status DC Divalproex Sodium (Depakote Sprinkles) 125 mg 0900,1700 PO Last administered on 02/19/19 16:32; Start 02/18/19 at 17:00 Active Scripts Active Reported Levothyroxine Sodium 50 Mcg Tablet 50 Mcg PO DAILYAC Clonazepam 0.5 Mg Tablet 0.5 Mg PO PRN Q6HRS PRN Laxative Suppository (Glycerin) 1 Each Supp.rect 1 Each RC PRN DAILY PRN Flonase Allergy Relief (Fluticasone Propionate) 9.9 Ml [place].susp 1 Sprays NS BID Pepcid (Famotidine) 20 Mg Tablet 10 Mg PO PRN Q12HR PRN Multivitamins (Multivitamin) 1 Each Tablet 1 Each PO DAILY Colace (Docusate Sodium) 100 Mg Capsule 100 Mg PO PRN Q12HR PRN Clonazepam 0.5 Mg Tablet 0.5 Mg PO HS Calcium 500 + Vit D 400 Tablet (Calcium Carbonate/Vitamin D3) 1 Each Tablet 2 Each PO DAILY Aricept (Donepezil Hcl) 5 Mg Tablet 5 Mg PO DAILY Fosamax (Alendronate Sodium) 70 Mg Tablet 70 Mg PO WEEKLY Zyrtec (Cetirizine Hcl) 10 Mg Tablet 10 Mg PO DAILY Zoloft (Sertraline Hcl) 25 Mg Tablet 25 Mg PO DAILY Tylenol (Acetaminophen) 325 Mg Tablet 650 Mg PO PRN Q4HRS PRN Trazodone Hcl 50 Mg Tablet 50 Mg PO HS Risperdal (Risperidone) 2 Mg Tablet 2 Mg PO BID Prozac (Fluoxetine Hcl) 10 Mg Capsule 10 Mg PO DAILY Prazosin Hcl 5 Mg Capsule 7 Mg PO HS Miralax (Polyethylene Glycol 3350) 17 Gm Powd.pack 1 Packet PO DAILY Pataday (Olopatadine Hcl) 2.5 Ml Drops 1 Drop EACHEYE DAILY Nasonex (Mometasone Furoate) 17 Gm [place].pump 2 Sprays NS DAILY Naproxen 500 Mg Tablet 500 Mg PO PRN Q12HR PRN Montelukast Sodium Tablet (Montelukast Sodium) 10 Mg Tablet 10 Mg PO HS Maalox Maximum Strength Susp (Mag Hydrox/Al Hydrox/Simeth) 355 Ml [place].susp 15 Ml PO PRN AFTMEALHC PRN I have reviewed the current psychotropics carefully including drug interactions. Risk benefit ratio favors no change other than as noted in my dictated progress note. Diagnosis: Problems: (1) Anxiety disorder (2) Impulse control disorder (3) Schizoaffective disorder, chronic condition with acute exacerbation JT SPARROW MD Feb 19, 2019 22:35
[2019-02-20 05:58] VITALS: BP 105/70
[2019-02-20] MEDS: LEVOTHYROXINE 50 MCG TABLET PO SCH (06:09)
[2019-02-20] MEDS: DIVALPROEX 125 MG CAP.SPRINK PO SCH ×2 (08:11→16:16)
[2019-02-20] MEDS: DONEPEZIL HCL 5 MG TABLET. PO SCH (08:11)
[2019-02-20] MEDS: KETOTIFEN FUMARATE 0.025% OPHT SOLUTION BOTTLE. OU SCH ×2 (08:11→19:33)
[2019-02-20] MEDS: FLUTICASONE 50MCG/NASAL SPRAY 16GM BOTTLE. NS SCH ×2 (08:11→19:33)
[2019-02-20] MEDS: risperiDONE 2 MG TABLET. PO SCH ×2 (08:12→19:34)
[2019-02-20] MEDS: MULTIVITAMIN with MINERAL TABLET. PO SCH (08:12)
[2019-02-20] MEDS: CALCIUM CARB/VIT D3 500/200 TABLET PO SCH (08:12)
[2019-02-20] MEDS: FLUoxetine HCL 10 MG CAPSULE PO SCH (08:12)
[2019-02-20] MEDS: CETIRIZINE HCL 10 MG TABLET PO SCH (08:12)
[2019-02-20] MEDS: POLYETHYLENE GLYCOL 3350 17 GM PACKET. PO SCH (08:12)
[2019-02-20] MEDS: NAPROXEN 500 MG TABLET PO PRN (12:58)
[2019-02-20] MEDS: clonazePAM 0.5 MG TABLET PO PRN (14:16)
[2019-02-20 16:12] VITALS: BP 120/83
[2019-02-20] MEDS: PRAZOSIN 5 MG CAPSULE. PO SCH (19:33)
[2019-02-20] MEDS: traZODone 50 MG TABLET. PO SCH (19:34)
[2019-02-20] MEDS: PRAZOSIN 1 MG CAPSULE. PO SCH (19:34)
[2019-02-20] MEDS: MONTELUKAST 10 MG TABLET. PO SCH (19:34)
[2019-02-20] MEDS: clonazePAM 0.5 MG TABLET PO SCH (19:35)
--- NOTE | 2019-02-20 22:53 | PDOC ---
Exam Note: Denzel Note: Please also refer to the separate dictated note~for this date of service dictated separately.~Patient seen individually. Discussed the patient with Nursing staff reviewed the chart.~Reviewed interim history and current functioning. Reviewed vital signs,~Labs/ Radiology~and current medications noted below. Continue current treatment with the changes noted in the dictated addendum note Assessment: Vital Signs: Vital Signs Date Time Temp Pulse Resp B/P (MAP) Pulse Ox O2 Delivery O2 Flow Rate FiO2 02/20/19 19:34 80 120/83 02/20/19 16:12 97.6 18 92 Room Air I&O Intake and Output 02/20/19 07:00 Intake Total 960 ml Balance 960 ml Intake Oral 960 ml Current Medications: Meds: Current Medications Acetaminophen (Tylenol) 650 mg PRN Q6HRS PRN PO PAIN / TEMP; Start 02/16/19 at 15:00; Stop 02/16/19 at 15:40; Status DC Multi-Ingredient Ointment (Analgesic [place]) 1 dacia PRN QID PRN TP MUSCLE PAIN; Start 02/16/19 at 15:00 Al Hydroxide/Mg Hydroxide (Mylanta Plus Xs) 15 ml PRN AFTMEALHC PRN PO DYSPEPSIA; Start 02/16/19 at 15:00; Stop 02/16/19 at 15:41; Status DC Magnesium Hydroxide (Milk Of Magnesia) 2,400 mg PRN QHS PRN PO CONSTIPATION; Start 02/16/19 at 15:00 Acetaminophen (Tylenol) 650 mg PRN Q4HRS PRN PO PAIN / TEMP; Start 02/16/19 at 15:00; Stop 02/16/19 at 15:41; Status DC Clonazepam (KlonoPIN) 0.5 mg HS PO Last administered on 02/20/19at 19:35; Start 02/16/19 at 21:00 Clonazepam (KlonoPIN) 0.5 mg PRN Q6HRS PRN PO ANXIETY / AGITATION Last administered on 02/20/19at 14:16; Start 02/16/19 at 15:00 Al Hydroxide/Mg Hydroxide (Mylanta Plus Xs) 15 ml PRN AFTMEALHC PRN PO DYSPEPSIA; Start 02/16/19 at 15:00 Alendronate Sodium (Fosamax) 70 mg WEEKLYAC PO ; Start 02/23/19 at 07:00 Calcium/Vitamin D (Oscal D 500mg/ 200uts) 2 tab DAILY PO Last administered on 08:12; Start 02/17/19 at 09:00 Cetirizine HCl (ZyrTEC) 10 mg DAILY PO Last administered on 02/20/19 08:12; Start 02/17/19 at 09:00 Docusate Sodium (Colace) 100 mg PRN Q12HR PRN PO CONSTIPATION; Start 02/16/19 at 16:00 Donepezil HCl (Aricept) 5 mg DAILY PO Last administered on 02/20/19 08:11; Start 02/17/19 at 09:00 Famotidine (Pepcid) 10 mg PRN Q12HR PRN PO GI UPSET; Start 02/16/19 at 21:00 Fluoxetine HCl (PROzac) 10 mg DAILY PO Last administered on 02/20/19 08:12; Start 02/17/19 at 09:00 Fluticasone Propionate (Flonase) 2 spray BID NS Last administered on 02/20/19 19:33; Start 02/16/19 at 21:00 Glycerin (Sani-Supp Adult) 1 supp PRN DAILY PRN [place] CONSTIPATION; Start at 16:15 Levothyroxine Sodium (Synthroid) 50 mcg DAILY06 PO Last administered on 06:09; Start 02/17/19 at 06:00 Non-Formulary Medication (Mometasone Furoate (Nasonex)) 2 sprays DAILY NS ; Start 02/17/19 at 09:00; Stop 02/17/19 at 09:00; Status DC Montelukast Sodium (Singulair) 10 mg QHS PO Last administered on 02/20/19 19: 34; Start 02/16/19 at 21:00 Multivitamins/ Calcium (Thera-M Plus) 1 tab DAILY PO Last administered on 08:12; Start 02/17/19 at 09:00 Naproxen (Naprosyn) 500 mg PRN Q12HR PRN PO PAIN Last administered on 12:58; Start 02/16/19 at 16:15 Ketotifen Fumarate (Zaditor) 1 drop BID OU Last administered on 02/20/19 19:33 ; Start 02/16/19 at 21:00 Polyethylene Glycol (miraLAX) 17 gm DAILY PO Last administered on 02/20/19 08: 12; Start 02/17/19 at 09:00 Prazosin HCl (Minipress) 5 mg QHS PO Last administered on 02/20/19 19:33; Start 02/16/19 at 21:00 Risperidone (RisperDAL) 2 mg BID PO Last administered on 02/20/19 19:34; Start 02/16/19 at 21:00 Sertraline HCl (Zoloft) 25 mg DAILY PO Last administered on 02/17/19 08:23; Start 02/17/19 at 09:00; Stop 02/17/19 at 10:17; Status DC Trazodone HCl (Desyrel) 50 mg HS PO Last administered on 02/20/19 19:34; Start 02/16/19 at 21:00 Acetaminophen (Tylenol) 650 mg PRN Q4HRS PRN PO PAIN / TEMP; Start 02/16/19 at 15:45 Prazosin HCl (Minipress) 2 mg HS PO Last administered on 02/20/19 19:34; Start 02/16/19 at 21:00 Divalproex Sodium (Depakote Sprinkles) 125 mg BID PO ; Start 02/18/19 at 09:00; Stop 02/18/19 at 09:00; Status DC Divalproex Sodium (Depakote Sprinkles) 125 mg BIDAFTMEAL PO Last administered on 02/18/19 08:08; Start 02/18/19 at 09:00; Stop 02/18/19 at 16:40; Status DC Divalproex Sodium (Depakote Sprinkles) 125 mg 0900,1700 PO Last administered on 02/20/19 16:16; Start 02/18/19 at 17:00 Olanzapine (ZyPREXA ZYDIS) 2.5 mg PRN Q2HR PRN PO PSYCHOSIS; Start 02/20/19 at 17:15 Active Scripts Active Reported Levothyroxine Sodium 50 Mcg Tablet 50 Mcg PO DAILYAC Clonazepam 0.5 Mg Tablet 0.5 Mg PO PRN Q6HRS PRN Laxative Suppository (Glycerin) 1 Each Supp.rect 1 Each RC PRN DAILY PRN Flonase Allergy Relief (Fluticasone Propionate) 9.9 Ml [place].susp 1 Sprays NS BID Pepcid (Famotidine) 20 Mg Tablet 10 Mg PO PRN Q12HR PRN Multivitamins (Multivitamin) 1 Each Tablet 1 Each PO DAILY Colace (Docusate Sodium) 100 Mg Capsule 100 Mg PO PRN Q12HR PRN Clonazepam 0.5 Mg Tablet 0.5 Mg PO HS Calcium 500 + Vit D 400 Tablet (Calcium Carbonate/Vitamin D3) 1 Each Tablet 2 Each PO DAILY Aricept (Donepezil Hcl) 5 Mg Tablet 5 Mg PO DAILY Fosamax (Alendronate Sodium) 70 Mg Tablet 70 Mg PO WEEKLY Zyrtec (Cetirizine Hcl) 10 Mg Tablet 10 Mg PO DAILY Zoloft (Sertraline Hcl) 25 Mg Tablet 25 Mg PO DAILY Tylenol (Acetaminophen) 325 Mg Tablet 650 Mg PO PRN Q4HRS PRN Trazodone Hcl 50 Mg Tablet 50 Mg PO HS Risperdal (Risperidone) 2 Mg Tablet 2 Mg PO BID Prozac (Fluoxetine Hcl) 10 Mg Capsule 10 Mg PO DAILY Prazosin Hcl 5 Mg Capsule 7 Mg PO HS Miralax (Polyethylene Glycol 3350) 17 Gm Powd.pack 1 Packet PO DAILY Pataday (Olopatadine Hcl) 2.5 Ml Drops 1 Drop EACHEYE DAILY Nasonex (Mometasone Furoate) 17 Gm [place].pump 2 Sprays NS DAILY Naproxen 500 Mg Tablet 500 Mg PO PRN Q12HR PRN Montelukast Sodium Tablet (Montelukast Sodium) 10 Mg Tablet 10 Mg PO HS Maalox Maximum Strength Susp (Mag Hydrox/Al Hydrox/Simeth) 355 Ml [place].susp 15 Ml PO PRN AFTMEALHC PRN I have reviewed the current psychotropics carefully including drug interactions. Risk benefit ratio favors no change other than as noted in my dictated progress note. Diagnosis: Problems: (1) Anxiety disorder (2) Impulse control disorder (3) Schizoaffective disorder, chronic condition with acute exacerbation JT SPARROW MD Feb 20, 2019 22:53
--- NOTE | 2019-02-21 00:25 | PN ---
DATE: 02/19/2019 PSYCHIATRIC PROGRESS NOTE This late entry 02/19/2019 covers elements not covered in my initial note. SUBJECTIVE: I met with the patient in the evening. The patient slept 7-1/2 hours previous night. She has been noted to be durbin, somewhat withdrawn, at times hyperverbal and then with a flat affect. She remains anxious. I met with her in her room and then later she met with me in the day room as well. She had further questions insisting on an early discharge. REVIEW OF SYSTEMS: Ambulation impaired due to her below-knee amputation. No CV, , pulmonary, eye, ENT system symptoms on review. MENTAL STATUS EXAM: Reasonably oriented. Speech coherent, somewhat pressured at times. Abstraction fair, computation impaired, language function intact, attention span short. Mood and affect remains somewhat labile, anxious at times, but showing improvement. LABORATORY DATA: Reviewed. IMPRESSION: Unchanged from initial note. PLAN: No change from initial note. Valproic acid level is due on the 02/21/2019 and we will adjust Depakote dosage thereafter to reach therapeutic level. We will defer to social service staff to discuss regarding [facility]. JT SPARROW MD DR: MINGO/pilar JOB#: [id number] / [id number]
[2019-02-21] MEDS: LEVOTHYROXINE 50 MCG TABLET PO SCH (04:58)
[2019-02-21 05:59] VITALS: BP 119/78
[2019-02-21 06:52] LABS: BASO % 1 % (0-3); EOS # 0.2 x10^3/uL (0.0-0.7); EOS % 3 % (0-3); HEMATOCRIT 38.8 % (36.0-47.0); HEMOGLOBIN 13.1 g/dL (12.0-15.5); LYMPH # 1.4 x10^3/uL (1.0-4.8); LYMPH % 25 % (24-48); MEAN CORPUSCULAR HEMOGLOBIN 28 pg (25-35); MEAN CORPUSCULAR HGB CONC 34 g/dL (31-37); MEAN CORPUSCULAR VOLUME 83 fL (79-100); MONO # 0.3 x10^3/uL (0.0-1.1); MONO % 6 % (0-9); NEUT # 3.8 x10^3uL (1.8-7.7); NEUT % 66 % (31-73); PLATELET COUNT 154 x10^3/uL (140-400); RED BLOOD COUNT 4.66 x10^6/uL (3.50-5.40); RED CELL DISTRIBUTION WIDTH 15.7 % (11.5-14.5); WHITE BLOOD COUNT 5.7 x10^3/uL (4.0-11.0)
[2019-02-21 07:08] LABS: ALBUMIN 3.7 g/dL (3.4-5.0); ALBUMIN/GLOBULIN RATIO 1.2 (1.0-1.7); CALCIUM 9.3 mg/dL (8.5-10.1); GFR 55.5; POTASSIUM 4.5 mmol/L (3.5-5.1); TOTAL BILIRUBIN 0.6 mg/dL (0.2-1.0); TOTAL PROTEIN 6.8 g/dL (6.4-8.2)
[2019-02-21 07:11] LABS: VAL ACID 20 mcg/mL (50-100)
[2019-02-21] MEDS: CETIRIZINE HCL 10 MG TABLET PO SCH (07:33)
[2019-02-21] MEDS: POLYETHYLENE GLYCOL 3350 17 GM PACKET. PO SCH (07:33)
[2019-02-21] MEDS: DIVALPROEX 125 MG CAP.SPRINK PO SCH ×3 (07:34→16:49)
[2019-02-21] MEDS: DONEPEZIL HCL 5 MG TABLET. PO SCH (07:34)
[2019-02-21] MEDS: MULTIVITAMIN with MINERAL TABLET. PO SCH (07:34)
[2019-02-21] MEDS: FLUoxetine HCL 10 MG CAPSULE PO SCH (07:34)
[2019-02-21] MEDS: risperiDONE 2 MG TABLET. PO SCH ×2 (07:34→20:57)
[2019-02-21] MEDS: CALCIUM CARB/VIT D3 500/200 TABLET PO SCH (07:34)
[2019-02-21] MEDS: KETOTIFEN FUMARATE 0.025% OPHT SOLUTION BOTTLE. OU SCH ×2 (07:35→21:00)
[2019-02-21] MEDS: FLUTICASONE 50MCG/NASAL SPRAY 16GM BOTTLE. NS SCH ×2 (07:35→21:01)
[2019-02-21] MEDS: clonazePAM 0.5 MG TABLET PO PRN (08:38)
[2019-02-21 15:59] VITALS: BP 138/89
[2019-02-21 16:14] VITALS: BP 133/81
[2019-02-21] MEDS: PRAZOSIN 5 MG CAPSULE. PO SCH (20:56)
[2019-02-21] MEDS: traZODone 50 MG TABLET. PO SCH (20:57)
[2019-02-21] MEDS: PRAZOSIN 1 MG CAPSULE. PO SCH (20:57)
[2019-02-21] MEDS: MONTELUKAST 10 MG TABLET. PO SCH (20:57)
[2019-02-21] MEDS: clonazePAM 0.5 MG TABLET PO SCH (21:00)
--- NOTE | 2019-02-21 22:56 | PDOC ---
Exam Note: Denzel Note: Please also refer to the separate dictated note~for this date of service dictated separately.~Patient seen individually. Discussed the patient with Nursing staff reviewed the chart.~Reviewed interim history and current functioning. Reviewed vital signs,~Labs/ Radiology~and current medications noted below. Continue current treatment with the changes noted in the dictated addendum note Assessment: Vital Signs: Vital Signs Date Time Temp Pulse Resp B/P (MAP) Pulse Ox O2 Delivery O2 Flow Rate FiO2 02/21/19 20:57 86 133/81 02/21/19 16:14 97.4 20 98 Room Air I&O Intake and Output 02/21/19 06:59 Intake Total 1420 ml Balance 1420 ml Intake Oral 1420 ml Labs: Laboratory Tests Test 02/21/19 06:13 White Blood Count 5.7 x10^3/uL (4.0-11.0) Red Blood Count 4.66 x10^6/uL (3.50-5.40) Hemoglobin 13.1 g/dL (12.0-15.5) Hematocrit 38.8 % (36.0-47.0) Mean Corpuscular Volume 83 fL (79-100) Mean Corpuscular Hemoglobin 28 pg (25-35) Mean Corpuscular Hemoglobin Concent 34 g/dL (31-37) Red Cell Distribution Width 15.7 % (11.5-14.5) H Platelet Count 154 x10^3/uL (140-400) Neutrophils (%) (Auto) 66 % (31-73) Lymphocytes (%) (Auto) 25 % (24-48) Monocytes (%) (Auto) 6 % (0-9) Eosinophils (%) (Auto) 3 % (0-3) Basophils (%) (Auto) 1 % (0-3) Neutrophils # (Auto) 3.8 x10^3uL (1.8-7.7) Lymphocytes # (Auto) 1.4 x10^3/uL (1.0-4.8) Monocytes # (Auto) 0.3 x10^3/uL (0.0-1.1) Eosinophils # (Auto) 0.2 x10^3/uL (0.0-0.7) Basophils # (Auto) 0.0 x10^3/uL (0.0-0.2) Sodium Level 141 mmol/L (136-145) Potassium Level 4.5 mmol/L (3.5-5.1) Chloride Level 105 mmol/L (98-107) Carbon Dioxide Level 27 mmol/L (21-32) Anion Gap 9 (6-14) Blood Urea Nitrogen 18 mg/dL (7-20) Creatinine 1.0 mg/dL (0.6-1.0) Estimated GFR (Cockcroft-Gault) 55.5 BUN/Creatinine Ratio 18 (6-20) Glucose Level 100 mg/dL (70-99) H Calcium Level 9.3 mg/dL (8.5-10.1) Total Bilirubin 0.6 mg/dL (0.2-1.0) Aspartate Amino Transferase (AST) 15 U/L (15-37) Alanine Aminotransferase (ALT) 23 U/L (14-59) Alkaline Phosphatase 94 U/L (46-116) Total Protein 6.8 g/dL (6.4-8.2) Albumin 3.7 g/dL (3.4-5.0) Albumin/Globulin Ratio 1.2 (1.0-1.7) Valproic Acid Level 20 mcg/mL (50-100) L Valproic Acid Last Dose Date 02/20/19 Valproic Acid Last Dose Time 1700 Current Medications: Meds: Current Medications Acetaminophen (Tylenol) 650 mg PRN Q6HRS PRN PO PAIN / TEMP; Start 02/16/19 at 15:00; Stop 02/16/19 at 15:40; Status DC Multi-Ingredient Ointment (Analgesic [place]) 1 dacia PRN QID PRN TP MUSCLE PAIN; Start 02/16/19 at 15:00 Al Hydroxide/Mg Hydroxide (Mylanta Plus Xs) 15 ml PRN AFTMEALHC PRN PO DYSPEPSIA; Start 02/16/19 at 15:00; Stop 02/16/19 at 15:41; Status DC Magnesium Hydroxide (Milk Of Magnesia) 2,400 mg PRN QHS PRN PO CONSTIPATION; Start 02/16/19 at 15:00 Acetaminophen (Tylenol) 650 mg PRN Q4HRS PRN PO PAIN / TEMP; Start 02/16/19 at 15:00; Stop 02/16/19 at 15:41; Status DC Clonazepam (KlonoPIN) 0.5 mg HS PO Last administered on 02/21/19at 21:00; Start 02/16/19 at 21:00 Clonazepam (KlonoPIN) 0.5 mg PRN Q6HRS PRN PO ANXIETY / AGITATION Last administered on 02/21/19at 08:38; Start 02/16/19 at 15:00 Al Hydroxide/Mg Hydroxide (Mylanta Plus Xs) 15 ml PRN AFTMEALHC PRN PO DYSPEPSIA; Start 02/16/19 at 15:00 Alendronate Sodium (Fosamax) 70 mg WEEKLYAC PO ; Start 02/23/19 at 07:00 Calcium/Vitamin D (Oscal D 500mg/ 200uts) 2 tab DAILY PO Last administered on 07:34; Start 02/17/19 at 09:00 Cetirizine HCl (ZyrTEC) 10 mg DAILY PO Last administered on 02/21/19at 07:33; Start 02/17/19 at 09:00 Docusate Sodium (Colace) 100 mg PRN Q12HR PRN PO CONSTIPATION; Start 02/16/19 at 16:00 Donepezil HCl (Aricept) 5 mg DAILY PO Last administered on 02/21/19at 07:34; Start 02/17/19 at 09:00 Famotidine (Pepcid) 10 mg PRN Q12HR PRN PO GI UPSET; Start 02/16/19 at 21:00 Fluoxetine HCl (PROzac) 10 mg DAILY PO Last administered on 02/21/19at 07:34; Start 02/17/19 at 09:00 Fluticasone Propionate (Flonase) 2 spray BID NS Last administered on 02/21/19at 21:01; Start 02/16/19 at 21:00 Glycerin (Sani-Supp Adult) 1 supp PRN DAILY PRN [place] CONSTIPATION; Start at 16:15 Levothyroxine Sodium (Synthroid) 50 mcg DAILY06 PO Last administered on at 04:58; Start 02/17/19 at 06:00 Non-Formulary Medication (Mometasone Furoate (Nasonex)) 2 sprays DAILY NS ; Start 02/17/19 at 09:00; Stop 02/17/19 at 09:00; Status DC Montelukast Sodium (Singulair) 10 mg QHS PO Last administered on 02/21/19 20: 57; Start 02/16/19 at 21:00 Multivitamins/ Calcium (Thera-M Plus) 1 tab DAILY PO Last administered on 07:34; Start 02/17/19 at 09:00 Naproxen (Naprosyn) 500 mg PRN Q12HR PRN PO PAIN Last administered on 12:58; Start 02/16/19 at 16:15 Ketotifen Fumarate (Zaditor) 1 drop BID OU Last administered on 02/21/19 21:00 ; Start 02/16/19 at 21:00 Polyethylene Glycol (miraLAX) 17 gm DAILY PO Last administered on 02/21/19 07: 33; Start 02/17/19 at 09:00 Prazosin HCl (Minipress) 5 mg QHS PO Last administered on 02/21/19 20:56; Start 02/16/19 at 21:00 Risperidone (RisperDAL) 2 mg BID PO Last administered on 02/21/19 20:57; Start 02/16/19 at 21:00 Sertraline HCl (Zoloft) 25 mg DAILY PO Last administered on 02/17/19 08:23; Start 02/17/19 at 09:00; Stop 02/17/19 at 10:17; Status DC Trazodone HCl (Desyrel) 50 mg HS PO Last administered on 02/21/19 20:57; Start 02/16/19 at 21:00 Acetaminophen (Tylenol) 650 mg PRN Q4HRS PRN PO PAIN / TEMP; Start 02/16/19 at 15:45 Prazosin HCl (Minipress) 2 mg HS PO Last administered on 02/21/19 20:57; Start 02/16/19 at 21:00 Divalproex Sodium (Depakote Sprinkles) 125 mg BID PO ; Start 02/18/19 at 09:00; Stop 02/18/19 at 09:00; Status DC Divalproex Sodium (Depakote Sprinkles) 125 mg BIDAFTMEAL PO Last administered on 02/18/19 08:08; Start 02/18/19 at 09:00; Stop 02/18/19 at 16:40; Status DC Divalproex Sodium (Depakote Sprinkles) 125 mg 0900,1700 PO Last administered on 02/21/19at 16:09; Start 02/18/19 at 17:00; Stop 02/21/19 at 16:35; Status DC Olanzapine (ZyPREXA ZYDIS) 2.5 mg PRN Q2HR PRN PO PSYCHOSIS; Start 02/20/19 at 17:15 Divalproex Sodium (Depakote Sprinkles) 250 mg 0900,1700 PO Last administered on 02/21/19at 16:49; Start 02/21/19 at 17:00 Active Scripts Active Reported Levothyroxine Sodium 50 Mcg Tablet 50 Mcg PO DAILYAC Clonazepam 0.5 Mg Tablet 0.5 Mg PO PRN Q6HRS PRN Laxative Suppository (Glycerin) 1 Each Supp.rect 1 Each RC PRN DAILY PRN Flonase Allergy Relief (Fluticasone Propionate) 9.9 Ml [place].susp 1 Sprays NS BID Pepcid (Famotidine) 20 Mg Tablet 10 Mg PO PRN Q12HR PRN Multivitamins (Multivitamin) 1 Each Tablet 1 Each PO DAILY Colace (Docusate Sodium) 100 Mg Capsule 100 Mg PO PRN Q12HR PRN Clonazepam 0.5 Mg Tablet 0.5 Mg PO HS Calcium 500 + Vit D 400 Tablet (Calcium Carbonate/Vitamin D3) 1 Each Tablet 2 Each PO DAILY Aricept (Donepezil Hcl) 5 Mg Tablet 5 Mg PO DAILY Fosamax (Alendronate Sodium) 70 Mg Tablet 70 Mg PO WEEKLY Zyrtec (Cetirizine Hcl) 10 Mg Tablet 10 Mg PO DAILY Zoloft (Sertraline Hcl) 25 Mg Tablet 25 Mg PO DAILY Tylenol (Acetaminophen) 325 Mg Tablet 650 Mg PO PRN Q4HRS PRN Trazodone Hcl 50 Mg Tablet 50 Mg PO HS Risperdal (Risperidone) 2 Mg Tablet 2 Mg PO BID Prozac (Fluoxetine Hcl) 10 Mg Capsule 10 Mg PO DAILY Prazosin Hcl 5 Mg Capsule 7 Mg PO HS Miralax (Polyethylene Glycol 3350) 17 Gm Powd.pack 1 Packet PO DAILY Pataday (Olopatadine Hcl) 2.5 Ml Drops 1 Drop EACHEYE DAILY Nasonex (Mometasone Furoate) 17 Gm [place].pump 2 Sprays NS DAILY Naproxen 500 Mg Tablet 500 Mg PO PRN Q12HR PRN Montelukast Sodium Tablet (Montelukast Sodium) 10 Mg Tablet 10 Mg PO HS Maalox Maximum Strength Susp (Mag Hydrox/Al Hydrox/Simeth) 355 Ml Oral.susp 15 Ml PO PRN AFTMEALHC PRN I have reviewed the current psychotropics carefully including drug interactions. Risk benefit ratio favors no change other than as noted in my dictated progress note. Diagnosis: Problems: (1) Anxiety disorder (2) Impulse control disorder (3) Schizoaffective disorder, chronic condition with acute exacerbation JT SPARROW MD Feb 21, 2019 22:56
--- NOTE | 2019-02-21 23:03 | PN ---
DATE: 02/20/2019 This late entry 02/20/2019 covers elements not covered in my initial note. SUBJECTIVE: I met with the patient in the evening. The patient slept 8-1/4 hours previous night. She did well in the morning, but around 2:15 p.m. she was tearful, anxious, yelling, screaming at staff, shoving at the door, wanting to speak to her , banging at the nursing station, glass window. The patient received Klonopin at 2:15 p.m. We will check a valproic acid level in the morning of 02/21/2019. She escalates after she has the telephone contact with her . REVIEW OF SYSTEMS: Ambulation impaired due to her below-knee amputation. No CV, , pulmonary, eye, ENT system symptoms on review. MENTAL STATUS EXAM: Reasonably oriented. Speech is coherent, rapid at times. Abstraction fair, computation impaired, language function intact. Mood and affect somewhat anxious, labile. LABORATORY DATA: Reviewed. IMPRESSION: Unchanged from initial note. PLAN: Start Zyprexa 2.5 mg q.2 hours p.r.n. psychosis, agitation, max 10 mg in 24 hours. Rest unchanged. MAN Juan Pablo SPARROW MD DR: MINGO/pilar JOB#: [id number] / [id number]
[2019-02-22 05:41] VITALS: BP 113/78
[2019-02-22] MEDS: LEVOTHYROXINE 50 MCG TABLET PO SCH (06:03)
[2019-02-22] MEDS: POLYETHYLENE GLYCOL 3350 17 GM PACKET. PO SCH (07:45)
[2019-02-22] MEDS: CALCIUM CARB/VIT D3 500/200 TABLET PO SCH (07:45)
[2019-02-22] MEDS: FLUoxetine HCL 10 MG CAPSULE PO SCH (07:45)
[2019-02-22] MEDS: CETIRIZINE HCL 10 MG TABLET PO SCH (07:45)
[2019-02-22] MEDS: DONEPEZIL HCL 5 MG TABLET. PO SCH (07:45)
[2019-02-22] MEDS: MULTIVITAMIN with MINERAL TABLET. PO SCH (07:45)
[2019-02-22] MEDS: DIVALPROEX 125 MG CAP.SPRINK PO SCH ×2 (07:46→17:09)
[2019-02-22] MEDS: risperiDONE 2 MG TABLET. PO SCH (07:46)
[2019-02-22] MEDS: FLUTICASONE 50MCG/NASAL SPRAY 16GM BOTTLE. NS SCH ×2 (07:46→19:16)
[2019-02-22] MEDS: KETOTIFEN FUMARATE 0.025% OPHT SOLUTION BOTTLE. OU SCH ×2 (07:46→19:16)
[2019-02-22 16:11] VITALS: BP 144/90
[2019-02-22] MEDS: OLANZapine 2.5 MG TABLET PO SCH (17:09)
[2019-02-22] MEDS: PRAZOSIN 5 MG CAPSULE. PO SCH (19:14)
[2019-02-22] MEDS: MONTELUKAST 10 MG TABLET. PO SCH (19:15)
[2019-02-22] MEDS: PRAZOSIN 1 MG CAPSULE. PO SCH (19:15)
[2019-02-22] MEDS: traZODone 50 MG TABLET. PO SCH (19:15)
[2019-02-22] MEDS: clonazePAM 0.5 MG TABLET PO SCH (19:16)
--- NOTE | 2019-02-22 22:31 | PDOC ---
Exam Note: Denzel Note: Please also refer to the separate dictated note~for this date of service dictated separately.~Patient seen individually. Discussed the patient with Nursing staff reviewed the chart.~Reviewed interim history and current functioning. Reviewed vital signs,~Labs/ Radiology~and current medications noted below. Continue current treatment with the changes noted in the dictated addendum note Assessment: Vital Signs: Vital Signs Date Time Temp Pulse Resp B/P (MAP) Pulse Ox O2 Delivery O2 Flow Rate FiO2 02/22/19 19:15 72 144/90 02/22/19 16:11 97.6 17 96 Room Air I&O Intake and Output 02/22/19 06:59 Intake Total 962 ml Balance 962 ml Intake Oral 962 ml # Voids 1 Current Medications: Meds: Current Medications Acetaminophen (Tylenol) 650 mg PRN Q6HRS PRN PO PAIN / TEMP; Start 02/16/19 at 15:00; Stop 02/16/19 at 15:40; Status DC Multi-Ingredient Ointment (Analgesic [place]) 1 dacia PRN QID PRN TP MUSCLE PAIN; Start 02/16/19 at 15:00 Al Hydroxide/Mg Hydroxide (Mylanta Plus Xs) 15 ml PRN AFTMEALHC PRN PO DYSPEPSIA; Start 02/16/19 at 15:00; Stop 02/16/19 at 15:41; Status DC Magnesium Hydroxide (Milk Of Magnesia) 2,400 mg PRN QHS PRN PO CONSTIPATION; Start 02/16/19 at 15:00 Acetaminophen (Tylenol) 650 mg PRN Q4HRS PRN PO PAIN / TEMP; Start 02/16/19 at 15:00; Stop 02/16/19 at 15:41; Status DC Clonazepam (KlonoPIN) 0.5 mg HS PO Last administered on 02/22/19at 19:16; Start 02/16/19 at 21:00 Clonazepam (KlonoPIN) 0.5 mg PRN Q6HRS PRN PO ANXIETY / AGITATION Last administered on 02/21/19at 08:38; Start 02/16/19 at 15:00 Al Hydroxide/Mg Hydroxide (Mylanta Plus Xs) 15 ml PRN AFTMEALHC PRN PO DYSPEPSIA; Start 02/16/19 at 15:00 Alendronate Sodium (Fosamax) 70 mg WEEKLYAC PO ; Start 02/23/19 at 07:00 Calcium/Vitamin D (Oscal D 500mg/ 200uts) 2 tab DAILY PO Last administered on 07:45; Start 02/17/19 at 09:00 Cetirizine HCl (ZyrTEC) 10 mg DAILY PO Last administered on 02/22/19 07:45; Start 02/17/19 at 09:00 Docusate Sodium (Colace) 100 mg PRN Q12HR PRN PO CONSTIPATION; Start 02/16/19 at 16:00 Donepezil HCl (Aricept) 5 mg DAILY PO Last administered on 02/22/19 07:45; Start 02/17/19 at 09:00 Famotidine (Pepcid) 10 mg PRN Q12HR PRN PO GI UPSET; Start 02/16/19 at 21:00 Fluoxetine HCl (PROzac) 10 mg DAILY PO Last administered on 02/22/19 07:45; Start 02/17/19 at 09:00 Fluticasone Propionate (Flonase) 2 spray BID NS Last administered on 02/22/19 19:16; Start 02/16/19 at 21:00 Glycerin (Sani-Supp Adult) 1 supp PRN DAILY PRN [place] CONSTIPATION; Start at 16:15 Levothyroxine Sodium (Synthroid) 50 mcg DAILY06 PO Last administered on 06:03; Start 02/17/19 at 06:00 Non-Formulary Medication (Mometasone Furoate (Nasonex)) 2 sprays DAILY NS ; Start 02/17/19 at 09:00; Stop 02/17/19 at 09:00; Status DC Montelukast Sodium (Singulair) 10 mg QHS PO Last administered on 02/22/19 19: 15; Start 02/16/19 at 21:00 Multivitamins/ Calcium (Thera-M Plus) 1 tab DAILY PO Last administered on 07:45; Start 02/17/19 at 09:00 Naproxen (Naprosyn) 500 mg PRN Q12HR PRN PO PAIN Last administered on 12:58; Start 02/16/19 at 16:15 Ketotifen Fumarate (Zaditor) 1 drop BID OU Last administered on 02/22/19 19:16 ; Start 02/16/19 at 21:00 Polyethylene Glycol (miraLAX) 17 gm DAILY PO Last administered on 02/22/19 07: 45; Start 02/17/19 at 09:00 Prazosin HCl (Minipress) 5 mg QHS PO Last administered on 02/22/19 19:14; Start 02/16/19 at 21:00 Risperidone (RisperDAL) 2 mg BID PO Last administered on 02/22/19 07:46; Start 02/16/19 at 21:00; Stop 02/22/19 at 10:54; Status DC Sertraline HCl (Zoloft) 25 mg DAILY PO Last administered on 02/17/19 08:23; Start 02/17/19 at 09:00; Stop 02/17/19 at 10:17; Status DC Trazodone HCl (Desyrel) 50 mg HS PO Last administered on 02/22/19 19:15; Start 02/16/19 at 21:00 Acetaminophen (Tylenol) 650 mg PRN Q4HRS PRN PO PAIN / TEMP; Start 02/16/19 at 15:45 Prazosin HCl (Minipress) 2 mg HS PO Last administered on 02/22/19 19:15; Start 02/16/19 at 21:00 Divalproex Sodium (Depakote Sprinkles) 125 mg BID PO ; Start 02/18/19 at 09:00; Stop 02/18/19 at 09:00; Status DC Divalproex Sodium (Depakote Sprinkles) 125 mg BIDAFTMEAL PO Last administered on 02/18/19 08:08; Start 02/18/19 at 09:00; Stop 02/18/19 at 16:40; Status DC Divalproex Sodium (Depakote Sprinkles) 125 mg 0900,1700 PO Last administered on 02/21/19at 16:09; Start 02/18/19 at 17:00; Stop 02/21/19 at 16:35; Status DC Olanzapine (ZyPREXA ZYDIS) 2.5 mg PRN Q2HR PRN PO PSYCHOSIS; Start 02/20/19 at 17:15 Divalproex Sodium (Depakote Sprinkles) 250 mg 0900,1700 PO Last administered on 02/22/19at 17:09; Start 02/21/19 at 17:00 Olanzapine (ZyPREXA) 2.5 mg BIDWMEALS PO Last administered on 02/22/19at 17:09; Start 02/22/19 at 17:00 Active Scripts Active Reported Levothyroxine Sodium 50 Mcg Tablet 50 Mcg PO DAILYAC Clonazepam 0.5 Mg Tablet 0.5 Mg PO PRN Q6HRS PRN Laxative Suppository (Glycerin) 1 Each Supp.rect 1 Each RC PRN DAILY PRN Flonase Allergy Relief (Fluticasone Propionate) 9.9 Ml [place].susp 1 Sprays NS BID Pepcid (Famotidine) 20 Mg Tablet 10 Mg PO PRN Q12HR PRN Multivitamins (Multivitamin) 1 Each Tablet 1 Each PO DAILY Colace (Docusate Sodium) 100 Mg Capsule 100 Mg PO PRN Q12HR PRN Clonazepam 0.5 Mg Tablet 0.5 Mg PO HS Calcium 500 + Vit D 400 Tablet (Calcium Carbonate/Vitamin D3) 1 Each Tablet 2 Each PO DAILY Aricept (Donepezil Hcl) 5 Mg Tablet 5 Mg PO DAILY Fosamax (Alendronate Sodium) 70 Mg Tablet 70 Mg PO WEEKLY Zyrtec (Cetirizine Hcl) 10 Mg Tablet 10 Mg PO DAILY Zoloft (Sertraline Hcl) 25 Mg Tablet 25 Mg PO DAILY Tylenol (Acetaminophen) 325 Mg Tablet 650 Mg PO PRN Q4HRS PRN Trazodone Hcl 50 Mg Tablet 50 Mg PO HS Risperdal (Risperidone) 2 Mg Tablet 2 Mg PO BID Prozac (Fluoxetine Hcl) 10 Mg Capsule 10 Mg PO DAILY Prazosin Hcl 5 Mg Capsule 7 Mg PO HS Miralax (Polyethylene Glycol 3350) 17 Gm Powd.pack 1 Packet PO DAILY Pataday (Olopatadine Hcl) 2.5 Ml Drops 1 Drop EACHEYE DAILY Nasonex (Mometasone Furoate) 17 Gm [place].pump 2 Sprays NS DAILY Naproxen 500 Mg Tablet 500 Mg PO PRN Q12HR PRN Montelukast Sodium Tablet (Montelukast Sodium) 10 Mg Tablet 10 Mg PO HS Maalox Maximum Strength Susp (Mag Hydrox/Al Hydrox/Simeth) 355 Ml Oral.susp 15 Ml PO PRN AFTMEALHC PRN I have reviewed the current psychotropics carefully including drug interactions. Risk benefit ratio favors no change other than as noted in my dictated progress note. Diagnosis: Problems: (1) Anxiety disorder (2) Impulse control disorder (3) Schizoaffective disorder, chronic condition with acute exacerbation JT SPARROW MD Feb 22, 2019 22:31
[2019-02-23] MEDS: LEVOTHYROXINE 50 MCG TABLET PO SCH ×2 (04:58→05:40)
[2019-02-23 05:48] VITALS: BP 98/66
[2019-02-23] MEDS ORDERED: ALENDRONATE SODIUM 35 MG TABLET PO SCH (07:00)
[2019-02-23] MEDS: CALCIUM CARB/VIT D3 500/200 TABLET PO SCH (08:39)
[2019-02-23] MEDS: OLANZapine 2.5 MG TABLET PO SCH ×2 (08:39→17:05)
[2019-02-23] MEDS: DONEPEZIL HCL 5 MG TABLET. PO SCH (08:39)
[2019-02-23] MEDS: FLUoxetine HCL 10 MG CAPSULE PO SCH (08:39)
[2019-02-23] MEDS: MULTIVITAMIN with MINERAL TABLET. PO SCH (08:39)
[2019-02-23] MEDS: CETIRIZINE HCL 10 MG TABLET PO SCH (08:39)
[2019-02-23] MEDS: DIVALPROEX 125 MG CAP.SPRINK PO SCH ×2 (08:40→17:05)
[2019-02-23] MEDS: POLYETHYLENE GLYCOL 3350 17 GM PACKET. PO SCH (08:40)
[2019-02-23] MEDS: KETOTIFEN FUMARATE 0.025% OPHT SOLUTION BOTTLE. OU SCH ×2 (08:41→20:23)
[2019-02-23] MEDS: FLUTICASONE 50MCG/NASAL SPRAY 16GM BOTTLE. NS SCH ×2 (08:41→20:25)
[2019-02-23 15:56] VITALS: BP 127/83
[2019-02-23] MEDS: MONTELUKAST 10 MG TABLET. PO SCH (20:22)
[2019-02-23] MEDS: clonazePAM 0.5 MG TABLET PO SCH (20:22)
[2019-02-23] MEDS: traZODone 50 MG TABLET. PO SCH (20:22)
[2019-02-23] MEDS: PRAZOSIN 5 MG CAPSULE. PO SCH (20:23)
[2019-02-23] MEDS: PRAZOSIN 1 MG CAPSULE. PO SCH (20:23)
--- NOTE | 2019-02-23 22:17 | PN ---
DATE: 02/21/2019 PSYCHIATRIC PROGRESS NOTE This late entry 02/21/2019 covers elements not covered in my initial note. SUBJECTIVE: I met with the patient in the evening. The patient slept 7-1/2 hours previous night. She was somewhat needy and whiny in the morning, received Klonopin at 9:00 a.m. Valproic acid level is 20 on Depakote Sprinkles 125 b.i.d. and we will increase to 250 b.i.d. Check CBC, CMP, valproic acid level in 3 days. REVIEW OF SYSTEMS: Ambulation impaired due to below-knee amputation, but she has a prosthesis. No CV, , pulmonary, eye, ENT system symptoms on review. MENTAL STATUS EXAMINATION: The patient is reasonably oriented. Speech is coherent, a little pressured at times. Abstraction fair, computation impaired, language function intact. Mood and affect, somewhat anxious. At times labile, but improved. LABORATORY DATA: Reviewed. IMPRESSION: Unchanged from initial note. PLAN: No change from initial note other than what is noted above. JT SPARROW MD DR: MINGO/pilar JOB#: [id number] / [id number]
--- NOTE | 2019-02-23 22:20 | PN ---
DATE: 02/22/2019 PSYCHIATRIC PROGRESS NOTE This late entry 02/22/2019 covers elements not covered in my initial note. SUBJECTIVE: I met with the patient in the evening and staffed at a treatment team meeting with the entire team in the morning. Reviewed the patient's diagnosis, progress, and the patient attended the treatment team meeting. Appetite 100%, sleeping about 8 hours a night. I have received information from detention and other sources indicating the patient responded very well to Zyprexa in the past. We will go ahead and change the Risperdal 2 mg b.i.d. to Zyprexa 2.5 mg 9:00 a.m. and 5 p.m. REVIEW OF SYSTEMS: Ambulation impaired due to below knee amputation. No CV, , pulmonary, eye system symptoms on review. MENTAL STATUS EXAMINATION: Reasonably oriented. Speech coherent, a little pressured at times. Abstraction fair, computation impaired, language function intact. Mood and affect still somewhat anxious, labile. LABORATORY DATA: Reviewed. IMPRESSION: Unchanged from initial note. PLAN: No change other than noted above. MAN Juan Pablo SPARROW MD DR: MINGO/pilar JOB#: [id number] / [id number]
--- NOTE | 2019-02-23 22:29 | PDOC ---
Exam Note: Denzel Note: Please also refer to the separate dictated note~for this date of service dictated separately.~Patient seen individually. Discussed the patient with Nursing staff reviewed the chart.~Reviewed interim history and current functioning. Reviewed vital signs,~Labs/ Radiology~and current medications noted below. Continue current treatment with the changes noted in the dictated addendum note Assessment: Vital Signs: Vital Signs Date Time Temp Pulse Resp B/P (MAP) Pulse Ox O2 Delivery O2 Flow Rate FiO2 02/23/19 20:23 75 127/83 02/23/19 15:56 98.2 18 94 Room Air I&O Intake and Output 02/23/19 06:59 Intake Total 720 ml Balance 720 ml Intake Oral 720 ml # Voids 1 Current Medications: Meds: Current Medications Acetaminophen (Tylenol) 650 mg PRN Q6HRS PRN PO PAIN / TEMP; Start 02/16/19 at 15:00; Stop 02/16/19 at 15:40; Status DC Multi-Ingredient Ointment (Analgesic [place]) 1 dacia PRN QID PRN TP MUSCLE PAIN; Start 02/16/19 at 15:00 Al Hydroxide/Mg Hydroxide (Mylanta Plus Xs) 15 ml PRN AFTMEALHC PRN PO DYSPEPSIA; Start 02/16/19 at 15:00; Stop 02/16/19 at 15:41; Status DC Magnesium Hydroxide (Milk Of Magnesia) 2,400 mg PRN QHS PRN PO CONSTIPATION; Start 02/16/19 at 15:00 Acetaminophen (Tylenol) 650 mg PRN Q4HRS PRN PO PAIN / TEMP; Start 02/16/19 at 15:00; Stop 02/16/19 at 15:41; Status DC Clonazepam (KlonoPIN) 0.5 mg HS PO Last administered on 02/23/19at 20:22; Start 02/16/19 at 21:00 Clonazepam (KlonoPIN) 0.5 mg PRN Q6HRS PRN PO ANXIETY / AGITATION Last administered on 02/21/19at 08:38; Start 02/16/19 at 15:00 Al Hydroxide/Mg Hydroxide (Mylanta Plus Xs) 15 ml PRN AFTMEALHC PRN PO DYSPEPSIA; Start 02/16/19 at 15:00 Alendronate Sodium (Fosamax) 70 mg WEEKLYAC PO Last administered on 02/23/19 08:41; Start 02/23/19 at 07:00 Calcium/Vitamin D (Oscal D 500mg/ 200uts) 2 tab DAILY PO Last administered on 08:39; Start 02/17/19 at 09:00 Cetirizine HCl (ZyrTEC) 10 mg DAILY PO Last administered on 02/23/19 08:39; Start 02/17/19 at 09:00 Docusate Sodium (Colace) 100 mg PRN Q12HR PRN PO CONSTIPATION; Start 02/16/19 at 16:00 Donepezil HCl (Aricept) 5 mg DAILY PO Last administered on 02/23/19 08:39; Start 02/17/19 at 09:00 Famotidine (Pepcid) 10 mg PRN Q12HR PRN PO GI UPSET; Start 02/16/19 at 21:00 Fluoxetine HCl (PROzac) 10 mg DAILY PO Last administered on 02/23/19 08:39; Start 02/17/19 at 09:00 Fluticasone Propionate (Flonase) 2 spray BID NS Last administered on 02/23/19 20:25; Start 02/16/19 at 21:00 Glycerin (Sani-Supp Adult) 1 supp PRN DAILY PRN [place] CONSTIPATION; Start at 16:15 Levothyroxine Sodium (Synthroid) 50 mcg DAILY06 PO Last administered on 06:03; Start 02/17/19 at 06:00 Non-Formulary Medication (Mometasone Furoate (Nasonex)) 2 sprays DAILY NS ; Start 02/17/19 at 09:00; Stop 02/17/19 at 09:00; Status DC Montelukast Sodium (Singulair) 10 mg QHS PO Last administered on 02/23/19 20: 22; Start 02/16/19 at 21:00 Multivitamins/ Calcium (Thera-M Plus) 1 tab DAILY PO Last administered on 08:39; Start 02/17/19 at 09:00 Naproxen (Naprosyn) 500 mg PRN Q12HR PRN PO PAIN Last administered on 12:58; Start 02/16/19 at 16:15 Ketotifen Fumarate (Zaditor) 1 drop BID OU Last administered on 02/23/19 20:23 ; Start 02/16/19 at 21:00 Polyethylene Glycol (miraLAX) 17 gm DAILY PO Last administered on 02/23/19 08: 40; Start 02/17/19 at 09:00 Prazosin HCl (Minipress) 5 mg QHS PO Last administered on 02/23/19 20:23; Start 02/16/19 at 21:00 Risperidone (RisperDAL) 2 mg BID PO Last administered on 02/22/19 07:46; Start 02/16/19 at 21:00; Stop 02/22/19 at 10:54; Status DC Sertraline HCl (Zoloft) 25 mg DAILY PO Last administered on 02/17/19 08:23; Start 02/17/19 at 09:00; Stop 02/17/19 at 10:17; Status DC Trazodone HCl (Desyrel) 50 mg HS PO Last administered on 02/23/19 20:22; Start 02/16/19 at 21:00 Acetaminophen (Tylenol) 650 mg PRN Q4HRS PRN PO PAIN / TEMP; Start 02/16/19 at 15:45 Prazosin HCl (Minipress) 2 mg HS PO Last administered on 02/23/19 20:23; Start 02/16/19 at 21:00 Divalproex Sodium (Depakote Sprinkles) 125 mg BID PO ; Start 02/18/19 at 09:00; Stop 02/18/19 at 09:00; Status DC Divalproex Sodium (Depakote Sprinkles) 125 mg BIDAFTMEAL PO Last administered on 02/18/19 08:08; Start 02/18/19 at 09:00; Stop 02/18/19 at 16:40; Status DC Divalproex Sodium (Depakote Sprinkles) 125 mg 0900,1700 PO Last administered on 02/21/19at 16:09; Start 02/18/19 at 17:00; Stop 02/21/19 at 16:35; Status DC Olanzapine (ZyPREXA ZYDIS) 2.5 mg PRN Q2HR PRN PO PSYCHOSIS; Start 02/20/19 at 17:15 Divalproex Sodium (Depakote Sprinkles) 250 mg 0900,1700 PO Last administered on 02/23/19at 17:05; Start 02/21/19 at 17:00 Olanzapine (ZyPREXA) 2.5 mg BIDWMEALS PO Last administered on 02/23/19at 17:05; Start 02/22/19 at 17:00 Active Scripts Active Reported Levothyroxine Sodium 50 Mcg Tablet 50 Mcg PO DAILYAC Clonazepam 0.5 Mg Tablet 0.5 Mg PO PRN Q6HRS PRN Laxative Suppository (Glycerin) 1 Each Supp.rect 1 Each RC PRN DAILY PRN Flonase Allergy Relief (Fluticasone Propionate) 9.9 Ml [place].susp 1 Sprays NS BID Pepcid (Famotidine) 20 Mg Tablet 10 Mg PO PRN Q12HR PRN Multivitamins (Multivitamin) 1 Each Tablet 1 Each PO DAILY Colace (Docusate Sodium) 100 Mg Capsule 100 Mg PO PRN Q12HR PRN Clonazepam 0.5 Mg Tablet 0.5 Mg PO HS Calcium 500 + Vit D 400 Tablet (Calcium Carbonate/Vitamin D3) 1 Each Tablet 2 Each PO DAILY Aricept (Donepezil Hcl) 5 Mg Tablet 5 Mg PO DAILY Fosamax (Alendronate Sodium) 70 Mg Tablet 70 Mg PO WEEKLY Zyrtec (Cetirizine Hcl) 10 Mg Tablet 10 Mg PO DAILY Zoloft (Sertraline Hcl) 25 Mg Tablet 25 Mg PO DAILY Tylenol (Acetaminophen) 325 Mg Tablet 650 Mg PO PRN Q4HRS PRN Trazodone Hcl 50 Mg Tablet 50 Mg PO HS Risperdal (Risperidone) 2 Mg Tablet 2 Mg PO BID Prozac (Fluoxetine Hcl) 10 Mg Capsule 10 Mg PO DAILY Prazosin Hcl 5 Mg Capsule 7 Mg PO HS Miralax (Polyethylene Glycol 3350) 17 Gm Powd.pack 1 Packet PO DAILY Pataday (Olopatadine Hcl) 2.5 Ml Drops 1 Drop EACHEYE DAILY Nasonex (Mometasone Furoate) 17 Gm [place].pump 2 Sprays NS DAILY Naproxen 500 Mg Tablet 500 Mg PO PRN Q12HR PRN Montelukast Sodium Tablet (Montelukast Sodium) 10 Mg Tablet 10 Mg PO HS Maalox Maximum Strength Susp (Mag Hydrox/Al Hydrox/Simeth) 355 Ml Oral.susp 15 Ml PO PRN AFTMEALHC PRN I have reviewed the current psychotropics carefully including drug interactions. Risk benefit ratio favors no change other than as noted in my dictated progress note. Diagnosis: Problems: (1) Anxiety disorder (2) Impulse control disorder (3) Schizoaffective disorder, chronic condition with acute exacerbation JT SPARROW MD Feb 23, 2019 22:29
[2019-02-24 05:59] VITALS: BP 121/80
[2019-02-24] MEDS: LEVOTHYROXINE 50 MCG TABLET PO SCH (06:18)
[2019-02-24] MEDS: OLANZapine 2.5 MG TABLET PO SCH ×2 (09:31→17:03)
[2019-02-24] MEDS: DONEPEZIL HCL 5 MG TABLET. PO SCH (09:31)
[2019-02-24] MEDS: KETOTIFEN FUMARATE 0.025% OPHT SOLUTION BOTTLE. OU SCH ×2 (09:31→19:26)
[2019-02-24] MEDS: DIVALPROEX 125 MG CAP.SPRINK PO SCH ×2 (09:31→17:03)
[2019-02-24] MEDS: FLUTICASONE 50MCG/NASAL SPRAY 16GM BOTTLE. NS SCH ×2 (09:31→19:26)
[2019-02-24] MEDS: POLYETHYLENE GLYCOL 3350 17 GM PACKET. PO SCH (09:32)
[2019-02-24] MEDS: MULTIVITAMIN with MINERAL TABLET. PO SCH (09:32)
[2019-02-24] MEDS: CALCIUM CARB/VIT D3 500/200 TABLET PO SCH (09:32)
[2019-02-24] MEDS: CETIRIZINE HCL 10 MG TABLET PO SCH (09:32)
[2019-02-24] MEDS: FLUoxetine HCL 10 MG CAPSULE PO SCH (09:32)
[2019-02-24 17:19] VITALS: BP 133/85
[2019-02-24] MEDS: traZODone 50 MG TABLET. PO SCH (19:23)
[2019-02-24] MEDS: clonazePAM 0.5 MG TABLET PO SCH (19:24)
[2019-02-24] MEDS: MONTELUKAST 10 MG TABLET. PO SCH (19:24)
[2019-02-24] MEDS: PRAZOSIN 1 MG CAPSULE. PO SCH (19:24)
[2019-02-24] MEDS: PRAZOSIN 5 MG CAPSULE. PO SCH (19:24)
--- NOTE | 2019-02-24 22:28 | PDOC ---
Exam Note: Denzel Note: Please also refer to the separate dictated note~for this date of service dictated separately.~Patient seen individually. Discussed the patient with Nursing staff reviewed the chart.~Reviewed interim history and current functioning. Reviewed vital signs,~Labs/ Radiology~and current medications noted below. Continue current treatment with the changes noted in the dictated addendum note Assessment: Vital Signs: Vital Signs Date Time Temp Pulse Resp B/P (MAP) Pulse Ox O2 Delivery O2 Flow Rate FiO2 02/24/19 19:24 77 133/85 02/24/19 17:19 98.3 20 97 02/23/19 15:56 Room Air I&O Intake and Output 02/24/19 07:00 Intake Total 1020 ml Balance 1020 ml Intake Oral 1020 ml # Voids 1 Current Medications: Meds: Current Medications Acetaminophen (Tylenol) 650 mg PRN Q6HRS PRN PO PAIN / TEMP; Start 02/16/19 at 15:00; Stop 02/16/19 at 15:40; Status DC Multi-Ingredient Ointment (Analgesic [place]) 1 dacia PRN QID PRN TP MUSCLE PAIN; Start 02/16/19 at 15:00 Al Hydroxide/Mg Hydroxide (Mylanta Plus Xs) 15 ml PRN AFTMEALHC PRN PO DYSPEPSIA; Start 02/16/19 at 15:00; Stop 02/16/19 at 15:41; Status DC Magnesium Hydroxide (Milk Of Magnesia) 2,400 mg PRN QHS PRN PO CONSTIPATION; Start 02/16/19 at 15:00 Acetaminophen (Tylenol) 650 mg PRN Q4HRS PRN PO PAIN / TEMP; Start 02/16/19 at 15:00; Stop 02/16/19 at 15:41; Status DC Clonazepam (KlonoPIN) 0.5 mg HS PO Last administered on 02/24/19at 19:24; Start 02/16/19 at 21:00 Clonazepam (KlonoPIN) 0.5 mg PRN Q6HRS PRN PO ANXIETY / AGITATION Last administered on 02/21/19at 08:38; Start 02/16/19 at 15:00 Al Hydroxide/Mg Hydroxide (Mylanta Plus Xs) 15 ml PRN AFTMEALHC PRN PO DYSPEPSIA; Start 02/16/19 at 15:00 Alendronate Sodium (Fosamax) 70 mg WEEKLYAC PO Last administered on 02/23/19 08:41; Start 02/23/19 at 07:00 Calcium/Vitamin D (Oscal D 500mg/ 200uts) 2 tab DAILY PO Last administered on 09:32; Start 02/17/19 at 09:00 Cetirizine HCl (ZyrTEC) 10 mg DAILY PO Last administered on 02/24/19 09:32; Start 02/17/19 at 09:00 Docusate Sodium (Colace) 100 mg PRN Q12HR PRN PO CONSTIPATION; Start 02/16/19 at 16:00 Donepezil HCl (Aricept) 5 mg DAILY PO Last administered on 02/24/19 09:31; Start 02/17/19 at 09:00 Famotidine (Pepcid) 10 mg PRN Q12HR PRN PO GI UPSET; Start 02/16/19 at 21:00 Fluoxetine HCl (PROzac) 10 mg DAILY PO Last administered on 02/24/19 09:32; Start 02/17/19 at 09:00 Fluticasone Propionate (Flonase) 2 spray BID NS Last administered on 02/24/19 19:26; Start 02/16/19 at 21:00 Glycerin (Sani-Supp Adult) 1 supp PRN DAILY PRN [place] CONSTIPATION; Start at 16:15 Levothyroxine Sodium (Synthroid) 50 mcg DAILY06 PO Last administered on 06:18; Start 02/17/19 at 06:00 Non-Formulary Medication (Mometasone Furoate (Nasonex)) 2 sprays DAILY NS ; Start 02/17/19 at 09:00; Stop 02/17/19 at 09:00; Status DC Montelukast Sodium (Singulair) 10 mg QHS PO Last administered on 02/24/19 19: 24; Start 02/16/19 at 21:00 Multivitamins/ Calcium (Thera-M Plus) 1 tab DAILY PO Last administered on 09:32; Start 02/17/19 at 09:00 Naproxen (Naprosyn) 500 mg PRN Q12HR PRN PO PAIN Last administered on 12:58; Start 02/16/19 at 16:15 Ketotifen Fumarate (Zaditor) 1 drop BID OU Last administered on 02/24/19 19:26 ; Start 02/16/19 at 21:00 Polyethylene Glycol (miraLAX) 17 gm DAILY PO Last administered on 02/24/19 09: 32; Start 02/17/19 at 09:00 Prazosin HCl (Minipress) 5 mg QHS PO Last administered on 02/24/19 19:24; Start 02/16/19 at 21:00 Risperidone (RisperDAL) 2 mg BID PO Last administered on 02/22/19 07:46; Start 02/16/19 at 21:00; Stop 02/22/19 at 10:54; Status DC Sertraline HCl (Zoloft) 25 mg DAILY PO Last administered on 02/17/19 08:23; Start 02/17/19 at 09:00; Stop 02/17/19 at 10:17; Status DC Trazodone HCl (Desyrel) 50 mg HS PO Last administered on 02/24/19 19:23; Start 02/16/19 at 21:00 Acetaminophen (Tylenol) 650 mg PRN Q4HRS PRN PO PAIN / TEMP; Start 02/16/19 at 15:45 Prazosin HCl (Minipress) 2 mg HS PO Last administered on 02/24/19 19:24; Start 02/16/19 at 21:00 Divalproex Sodium (Depakote Sprinkles) 125 mg BID PO ; Start 02/18/19 at 09:00; Stop 02/18/19 at 09:00; Status DC Divalproex Sodium (Depakote Sprinkles) 125 mg BIDAFTMEAL PO Last administered on 02/18/19 08:08; Start 02/18/19 at 09:00; Stop 02/18/19 at 16:40; Status DC Divalproex Sodium (Depakote Sprinkles) 125 mg 0900,1700 PO Last administered on 02/21/19 16:09; Start 02/18/19 at 17:00; Stop 02/21/19 at 16:35; Status DC Olanzapine (ZyPREXA ZYDIS) 2.5 mg PRN Q2HR PRN PO PSYCHOSIS; Start 02/20/19 at 17:15 Divalproex Sodium (Depakote Sprinkles) 250 mg 0900,1700 PO Last administered on 02/24/19at 17:03; Start 02/21/19 at 17:00 Olanzapine (ZyPREXA) 2.5 mg BIDWMEALS PO Last administered on 02/24/19at 17:03; Start 02/22/19 at 17:00 Active Scripts Active Reported Levothyroxine Sodium 50 Mcg Tablet 50 Mcg PO DAILYAC Clonazepam 0.5 Mg Tablet 0.5 Mg PO PRN Q6HRS PRN Laxative Suppository (Glycerin) 1 Each Supp.rect 1 Each RC PRN DAILY PRN Flonase Allergy Relief (Fluticasone Propionate) 9.9 Ml [place].susp 1 Sprays NS BID Pepcid (Famotidine) 20 Mg Tablet 10 Mg PO PRN Q12HR PRN Multivitamins (Multivitamin) 1 Each Tablet 1 Each PO DAILY Colace (Docusate Sodium) 100 Mg Capsule 100 Mg PO PRN Q12HR PRN Clonazepam 0.5 Mg Tablet 0.5 Mg PO HS Calcium 500 + Vit D 400 Tablet (Calcium Carbonate/Vitamin D3) 1 Each Tablet 2 Each PO DAILY Aricept (Donepezil Hcl) 5 Mg Tablet 5 Mg PO DAILY Fosamax (Alendronate Sodium) 70 Mg Tablet 70 Mg PO WEEKLY Zyrtec (Cetirizine Hcl) 10 Mg Tablet 10 Mg PO DAILY Zoloft (Sertraline Hcl) 25 Mg Tablet 25 Mg PO DAILY Tylenol (Acetaminophen) 325 Mg Tablet 650 Mg PO PRN Q4HRS PRN Trazodone Hcl 50 Mg Tablet 50 Mg PO HS Risperdal (Risperidone) 2 Mg Tablet 2 Mg PO BID Prozac (Fluoxetine Hcl) 10 Mg Capsule 10 Mg PO DAILY Prazosin Hcl 5 Mg Capsule 7 Mg PO HS Miralax (Polyethylene Glycol 3350) 17 Gm Powd.pack 1 Packet PO DAILY Pataday (Olopatadine Hcl) 2.5 Ml Drops 1 Drop EACHEYE DAILY Nasonex (Mometasone Furoate) 17 Gm [place].pump 2 Sprays NS DAILY Naproxen 500 Mg Tablet 500 Mg PO PRN Q12HR PRN Montelukast Sodium Tablet (Montelukast Sodium) 10 Mg Tablet 10 Mg PO HS Maalox Maximum Strength Susp (Mag Hydrox/Al Hydrox/Simeth) 355 Ml Oral.susp 15 Ml PO PRN AFTMEALHC PRN I have reviewed the current psychotropics carefully including drug interactions. Risk benefit ratio favors no change other than as noted in my dictated progress note. Diagnosis: Problems: (1) Anxiety disorder (2) Impulse control disorder (3) Schizoaffective disorder, chronic condition with acute exacerbation JT SPARROW MD Feb 24, 2019 22:28
[2019-02-25] MEDS: LEVOTHYROXINE 50 MCG TABLET PO SCH (04:51)
[2019-02-25 06:36] VITALS: BP 111/78
[2019-02-25] MEDS: KETOTIFEN FUMARATE 0.025% OPHT SOLUTION BOTTLE. OU SCH ×2 (07:48→21:00)
[2019-02-25] MEDS: OLANZapine 2.5 MG TABLET PO SCH ×2 (07:48→16:32)
[2019-02-25] MEDS: FLUTICASONE 50MCG/NASAL SPRAY 16GM BOTTLE. NS SCH ×2 (07:48→21:00)
[2019-02-25] MEDS: DONEPEZIL HCL 5 MG TABLET. PO SCH (07:49)
[2019-02-25] MEDS: DIVALPROEX 125 MG CAP.SPRINK PO SCH ×2 (07:49→16:32)
[2019-02-25] MEDS: POLYETHYLENE GLYCOL 3350 17 GM PACKET. PO SCH (07:49)
[2019-02-25] MEDS: FLUoxetine HCL 10 MG CAPSULE PO SCH (07:50)
[2019-02-25] MEDS: CALCIUM CARB/VIT D3 500/200 TABLET PO SCH (07:50)
[2019-02-25] MEDS: MULTIVITAMIN with MINERAL TABLET. PO SCH (07:50)
[2019-02-25] MEDS: CETIRIZINE HCL 10 MG TABLET PO SCH (07:50)
[2019-02-25 08:24] LABS: BASO % 1 % (0-3); EOS # 0.1 x10^3/uL (0.0-0.7); EOS % 3 % (0-3); HEMOGLOBIN 13.6 g/dL (12.0-15.5); LYMPH # 1.4 x10^3/uL (1.0-4.8); LYMPH % 26 % (24-48); MEAN CORPUSCULAR HEMOGLOBIN 28 pg (25-35); MEAN CORPUSCULAR HGB CONC 34 g/dL (31-37); MEAN CORPUSCULAR VOLUME 84 fL (79-100); MONO # 0.3 x10^3/uL (0.0-1.1); MONO % 5 % (0-9); NEUT # 3.5 x10^3uL (1.8-7.7); NEUT % 66 % (31-73); PLATELET COUNT 136 x10^3/uL (140-400); RED BLOOD COUNT 4.78 x10^6/uL (3.50-5.40); RED CELL DISTRIBUTION WIDTH 15.7 % (11.5-14.5); WHITE BLOOD COUNT 5.3 x10^3/uL (4.0-11.0)
[2019-02-25 08:44] LABS: ALBUMIN 3.7 g/dL (3.4-5.0); ALBUMIN/GLOBULIN RATIO 1.1 (1.0-1.7); ALK PHOS 94 U/L (46-116); ALT (SGPT) 22 U/L (14-59); ANION GAP 11 (6-14); AST (SGOT) 14 U/L (15-37); BLOOD UREA NITROGEN 21 mg/dL (7-20); BUN/CREATININE RATIO 21 (6-20); CALCIUM 9.4 mg/dL (8.5-10.1); CARBON DIOXIDE 26 mmol/L (21-32); CHLORIDE 105 mmol/L (98-107); GFR 55.5; GLUCOSE 94 mg/dL (70-99); POTASSIUM 4.5 mmol/L (3.5-5.1); SODIUM 142 mmol/L (136-145); TOTAL BILIRUBIN 0.6 mg/dL (0.2-1.0); TOTAL PROTEIN 7.2 g/dL (6.4-8.2)
[2019-02-25 08:53] LABS: VAL ACID 43 mcg/mL (50-100)
[2019-02-25 15:44] VITALS: BP 130/76
[2019-02-25] MEDS: MONTELUKAST 10 MG TABLET. PO SCH (20:52)
[2019-02-25] MEDS: clonazePAM 0.5 MG TABLET PO SCH (20:52)
[2019-02-25] MEDS: traZODone 50 MG TABLET. PO SCH (20:52)
[2019-02-25] MEDS: PRAZOSIN 5 MG CAPSULE. PO SCH (21:12)
[2019-02-25] MEDS: PRAZOSIN 1 MG CAPSULE. PO SCH (21:13)
--- NOTE | 2019-02-25 22:39 | PDOC ---
Exam Note: Denzel Note: Please also refer to the separate dictated note~for this date of service dictated separately.~Patient seen individually. Discussed the patient with Nursing staff reviewed the chart.~Reviewed interim history and current functioning. Reviewed vital signs,~Labs/ Radiology~and current medications noted below. Continue current treatment with the changes noted in the dictated addendum note Assessment: Vital Signs: Vital Signs Date Time Temp Pulse Resp B/P (MAP) Pulse Ox O2 Delivery O2 Flow Rate FiO2 02/25/19 21:13 80 148/92 02/25/19 15:44 97.3 18 92 02/25/19 06:36 Room Air I&O Intake and Output 02/25/19 07:00 Intake Total 960 ml Balance 960 ml Intake Oral 960 ml Labs: Laboratory Tests Test 02/25/19 07:57 White Blood Count 5.3 x10^3/uL (4.0-11.0) Red Blood Count 4.78 x10^6/uL (3.50-5.40) Hemoglobin 13.6 g/dL (12.0-15.5) Hematocrit 40.0 % (36.0-47.0) Mean Corpuscular Volume 84 fL (79-100) Mean Corpuscular Hemoglobin 28 pg (25-35) Mean Corpuscular Hemoglobin Concent 34 g/dL (31-37) Red Cell Distribution Width 15.7 % (11.5-14.5) H Platelet Count 136 x10^3/uL (140-400) L Neutrophils (%) (Auto) 66 % (31-73) Lymphocytes (%) (Auto) 26 % (24-48) Monocytes (%) (Auto) 5 % (0-9) Eosinophils (%) (Auto) 3 % (0-3) Basophils (%) (Auto) 1 % (0-3) Neutrophils # (Auto) 3.5 x10^3uL (1.8-7.7) Lymphocytes # (Auto) 1.4 x10^3/uL (1.0-4.8) Monocytes # (Auto) 0.3 x10^3/uL (0.0-1.1) Eosinophils # (Auto) 0.1 x10^3/uL (0.0-0.7) Basophils # (Auto) 0.0 x10^3/uL (0.0-0.2) Sodium Level 142 mmol/L (136-145) Potassium Level 4.5 mmol/L (3.5-5.1) Chloride Level 105 mmol/L (98-107) Carbon Dioxide Level 26 mmol/L (21-32) Anion Gap 11 (6-14) Blood Urea Nitrogen 21 mg/dL (7-20) H Creatinine 1.0 mg/dL (0.6-1.0) Estimated GFR (Cockcroft-Gault) 55.5 BUN/Creatinine Ratio 21 (6-20) H Glucose Level 94 mg/dL (70-99) Calcium Level 9.4 mg/dL (8.5-10.1) Total Bilirubin 0.6 mg/dL (0.2-1.0) Aspartate Amino Transferase (AST) 14 U/L (15-37) L Alanine Aminotransferase (ALT) 22 U/L (14-59) Alkaline Phosphatase 94 U/L (46-116) Total Protein 7.2 g/dL (6.4-8.2) Albumin 3.7 g/dL (3.4-5.0) Albumin/Globulin Ratio 1.1 (1.0-1.7) Valproic Acid Level 43 mcg/mL (50-100) L Valproic Acid Last Dose Date 02/24/19 Valproic Acid Last Dose Time 1700 Current Medications: Meds: Current Medications Acetaminophen (Tylenol) 650 mg PRN Q6HRS PRN PO PAIN / TEMP; Start 02/16/19 at 15:00; Stop 02/16/19 at 15:40; Status DC Multi-Ingredient Ointment (Analgesic [place]) 1 dacia PRN QID PRN TP MUSCLE PAIN; Start 02/16/19 at 15:00 Al Hydroxide/Mg Hydroxide (Mylanta Plus Xs) 15 ml PRN AFTMEALHC PRN PO DYSPEPSIA; Start 02/16/19 at 15:00; Stop 02/16/19 at 15:41; Status DC Magnesium Hydroxide (Milk Of Magnesia) 2,400 mg PRN QHS PRN PO CONSTIPATION; Start 02/16/19 at 15:00 Acetaminophen (Tylenol) 650 mg PRN Q4HRS PRN PO PAIN / TEMP; Start 02/16/19 at 15:00; Stop 02/16/19 at 15:41; Status DC Clonazepam (KlonoPIN) 0.5 mg HS PO Last administered on 02/25/19 20:52; Start 02/16/19 at 21:00 Clonazepam (KlonoPIN) 0.5 mg PRN Q6HRS PRN PO ANXIETY / AGITATION Last administered on 02/21/19 08:38; Start 02/16/19 at 15:00 Al Hydroxide/Mg Hydroxide (Mylanta Plus Xs) 15 ml PRN AFTMEALHC PRN PO DYSPEPSIA; Start 02/16/19 at 15:00 Alendronate Sodium (Fosamax) 70 mg WEEKLYAC PO Last administered on 02/23/19 08:41; Start 02/23/19 at 07:00 Calcium/Vitamin D (Oscal D 500mg/ 200uts) 2 tab DAILY PO Last administered on 07:50; Start 02/17/19 at 09:00 Cetirizine HCl (ZyrTEC) 10 mg DAILY PO Last administered on 02/25/19 07:50; Start 02/17/19 at 09:00 Docusate Sodium (Colace) 100 mg PRN Q12HR PRN PO CONSTIPATION; Start 02/16/19 at 16:00 Donepezil HCl (Aricept) 5 mg DAILY PO Last administered on 02/25/19 07:49; Start 02/17/19 at 09:00 Famotidine (Pepcid) 10 mg PRN Q12HR PRN PO GI UPSET; Start 02/16/19 at 21:00 Fluoxetine HCl (PROzac) 10 mg DAILY PO Last administered on 02/25/19 07:50; Start 02/17/19 at 09:00 Fluticasone Propionate (Flonase) 2 spray BID NS Last administered on 02/25/19 07:48; Start 02/16/19 at 21:00 Glycerin (Sani-Supp Adult) 1 supp PRN DAILY PRN [place] CONSTIPATION; Start at 16:15 Levothyroxine Sodium (Synthroid) 50 mcg DAILY06 PO Last administered on 04:51; Start 02/17/19 at 06:00 Non-Formulary Medication (Mometasone Furoate (Nasonex)) 2 sprays DAILY NS ; Start 02/17/19 at 09:00; Stop 02/17/19 at 09:00; Status DC Montelukast Sodium (Singulair) 10 mg QHS PO Last administered on 02/25/19 20: 52; Start 02/16/19 at 21:00 Multivitamins/ Calcium (Thera-M Plus) 1 tab DAILY PO Last administered on 07:50; Start 02/17/19 at 09:00 Naproxen (Naprosyn) 500 mg PRN Q12HR PRN PO PAIN Last administered on 12:58; Start 02/16/19 at 16:15 Ketotifen Fumarate (Zaditor) 1 drop BID OU Last administered on 02/25/19 07:48 ; Start 02/16/19 at 21:00 Polyethylene Glycol (miraLAX) 17 gm DAILY PO Last administered on 02/25/19 07: 49; Start 02/17/19 at 09:00 Prazosin HCl (Minipress) 5 mg QHS PO Last administered on 02/25/19 21:12; Start 02/16/19 at 21:00 Risperidone (RisperDAL) 2 mg BID PO Last administered on 02/22/19 07:46; Start 02/16/19 at 21:00; Stop 02/22/19 at 10:54; Status DC Sertraline HCl (Zoloft) 25 mg DAILY PO Last administered on 02/17/19 08:23; Start 02/17/19 at 09:00; Stop 02/17/19 at 10:17; Status DC Trazodone HCl (Desyrel) 50 mg HS PO Last administered on 02/25/19 20:52; Start 02/16/19 at 21:00 Acetaminophen (Tylenol) 650 mg PRN Q4HRS PRN PO PAIN / TEMP; Start 02/16/19 at 15:45 Prazosin HCl (Minipress) 2 mg HS PO Last administered on 02/25/19 21:13; Start 02/16/19 at 21:00 Divalproex Sodium (Depakote Sprinkles) 125 mg BID PO ; Start 02/18/19 at 09:00; Stop 02/18/19 at 09:00; Status DC Divalproex Sodium (Depakote Sprinkles) 125 mg BIDAFTMEAL PO Last administered on 02/18/19at 08:08; Start 02/18/19 at 09:00; Stop 02/18/19 at 16:40; Status DC Divalproex Sodium (Depakote Sprinkles) 125 mg 0900,1700 PO Last administered on 02/21/19at 16:09; Start 02/18/19 at 17:00; Stop 02/21/19 at 16:35; Status DC Olanzapine (ZyPREXA ZYDIS) 2.5 mg PRN Q2HR PRN PO PSYCHOSIS; Start 02/20/19 at 17:15 Divalproex Sodium (Depakote Sprinkles) 250 mg 0900,1700 PO Last administered on 02/25/19at 16:32; Start 02/21/19 at 17:00 Olanzapine (ZyPREXA) 2.5 mg BIDWMEALS PO Last administered on 02/25/19at 16:32; Start 02/22/19 at 17:00 Active Scripts Active Reported Levothyroxine Sodium 50 Mcg Tablet 50 Mcg PO DAILYAC Clonazepam 0.5 Mg Tablet 0.5 Mg PO PRN Q6HRS PRN Laxative Suppository (Glycerin) 1 Each Supp.rect 1 Each RC PRN DAILY PRN Flonase Allergy Relief (Fluticasone Propionate) 9.9 Ml [place].susp 1 Sprays NS BID Pepcid (Famotidine) 20 Mg Tablet 10 Mg PO PRN Q12HR PRN Multivitamins (Multivitamin) 1 Each Tablet 1 Each PO DAILY Colace (Docusate Sodium) 100 Mg Capsule 100 Mg PO PRN Q12HR PRN Clonazepam 0.5 Mg Tablet 0.5 Mg PO HS Calcium 500 + Vit D 400 Tablet (Calcium Carbonate/Vitamin D3) 1 Each Tablet 2 Each PO DAILY Aricept (Donepezil Hcl) 5 Mg Tablet 5 Mg PO DAILY Fosamax (Alendronate Sodium) 70 Mg Tablet 70 Mg PO WEEKLY Zyrtec (Cetirizine Hcl) 10 Mg Tablet 10 Mg PO DAILY Zoloft (Sertraline Hcl) 25 Mg Tablet 25 Mg PO DAILY Tylenol (Acetaminophen) 325 Mg Tablet 650 Mg PO PRN Q4HRS PRN Trazodone Hcl 50 Mg Tablet 50 Mg PO HS Risperdal (Risperidone) 2 Mg Tablet 2 Mg PO BID Prozac (Fluoxetine Hcl) 10 Mg Capsule 10 Mg PO DAILY Prazosin Hcl 5 Mg Capsule 7 Mg PO HS Miralax (Polyethylene Glycol 3350) 17 Gm Powd.pack 1 Packet PO DAILY Pataday (Olopatadine Hcl) 2.5 Ml Drops 1 Drop EACHEYE DAILY Nasonex (Mometasone Furoate) 17 Gm [place].pump 2 Sprays NS DAILY Naproxen 500 Mg Tablet 500 Mg PO PRN Q12HR PRN Montelukast Sodium Tablet (Montelukast Sodium) 10 Mg Tablet 10 Mg PO HS Maalox Maximum Strength Susp (Mag Hydrox/Al Hydrox/Simeth) 355 Ml Oral.susp 15 Ml PO PRN AFTMEALHC PRN I have reviewed the current psychotropics carefully including drug interactions. Risk benefit ratio favors no change other than as noted in my dictated progress note. Diagnosis: Problems: (1) Anxiety disorder (2) Impulse control disorder (3) Schizoaffective disorder, chronic condition with acute exacerbation JT SPARROW MD Feb 25, 2019 22:39
[2019-02-26] MEDS: LEVOTHYROXINE 50 MCG TABLET PO SCH (06:15)
[2019-02-26 06:46] VITALS: BP 106/71
[2019-02-26] MEDS: MULTIVITAMIN with MINERAL TABLET. PO SCH (08:23)
[2019-02-26] MEDS: DONEPEZIL HCL 5 MG TABLET. PO SCH (08:23)
[2019-02-26] MEDS: DIVALPROEX 125 MG CAP.SPRINK PO SCH ×2 (08:23→16:06)
[2019-02-26] MEDS: CETIRIZINE HCL 10 MG TABLET PO SCH (08:23)
[2019-02-26] MEDS: OLANZapine 2.5 MG TABLET PO SCH ×2 (08:23→16:06)
[2019-02-26] MEDS: CALCIUM CARB/VIT D3 500/200 TABLET PO SCH (08:23)
[2019-02-26] MEDS: FLUoxetine HCL 10 MG CAPSULE PO SCH (08:24)
[2019-02-26] MEDS: POLYETHYLENE GLYCOL 3350 17 GM PACKET. PO SCH (09:00)
[2019-02-26] MEDS: KETOTIFEN FUMARATE 0.025% OPHT SOLUTION BOTTLE. OU SCH ×2 (09:39→19:40)
[2019-02-26] MEDS: FLUTICASONE 50MCG/NASAL SPRAY 16GM BOTTLE. NS SCH ×2 (09:39→19:40)
[2019-02-26 16:14] VITALS: BP 150/97
[2019-02-26] MEDS: clonazePAM 0.5 MG TABLET PO SCH (19:36)
[2019-02-26] MEDS: traZODone 50 MG TABLET. PO SCH (19:36)
[2019-02-26] MEDS: MONTELUKAST 10 MG TABLET. PO SCH (19:37)
[2019-02-26] MEDS: PRAZOSIN 5 MG CAPSULE. PO SCH (19:37)
[2019-02-26] MEDS: PRAZOSIN 1 MG CAPSULE. PO SCH (19:38)
--- NOTE | 2019-02-26 22:40 | PN ---
DATE: 02/23/2019 PSYCHIATRIC PROGRESS NOTE This late entry of 02/23/2019 covers elements not covered in my initial note. SUBJECTIVE: I met with the patient at some length in her room. She has been coming out of the dayroom somewhat more. She slept 8-1/4 hours previous evening and described by the nursing staff as being "better." REVIEW OF SYSTEMS: Positive for impaired ambulation. No CV, , pulmonary, eye system symptoms on review. MENTAL STATUS EXAM: The patient is reasonably oriented. Speech coherent, at times a little pressured. Abstraction fair, computation impaired, language function intact. Mood and affect showing improvement. LABORATORY DATA: Reviewed. IMPRESSION: Unchanged from initial note. PLAN: No change from initial note and valproic acid level is therapeutic. JT SPARROW MD DR: MINGO/pilar JOB#: [id number] / [id number]
--- NOTE | 2019-02-26 22:49 | PDOC ---
Exam Note: Denzel Note: Please also refer to the separate dictated note~for this date of service dictated separately.~Patient seen individually. Discussed the patient with Nursing staff reviewed the chart.~Reviewed interim history and current functioning. Reviewed vital signs,~Labs/ Radiology~and current medications noted below. Continue current treatment with the changes noted in the dictated addendum note Assessment: Vital Signs: Vital Signs Date Time Temp Pulse Resp B/P (MAP) Pulse Ox O2 Delivery O2 Flow Rate FiO2 02/26/19 19:38 87 150/97 02/26/19 16:14 97.6 22 99 02/26/19 06:46 Room Air I&O Intake and Output 02/26/19 06:59 Intake Total 1200 ml Balance 1200 ml Intake Oral 1200 ml # Voids 1 Current Medications: Meds: Current Medications Acetaminophen (Tylenol) 650 mg PRN Q6HRS PRN PO PAIN / TEMP; Start 02/16/19 at 15:00; Stop 02/16/19 at 15:40; Status DC Multi-Ingredient Ointment (Analgesic [place]) 1 dacia PRN QID PRN TP MUSCLE PAIN; Start 02/16/19 at 15:00 Al Hydroxide/Mg Hydroxide (Mylanta Plus Xs) 15 ml PRN AFTMEALHC PRN PO DYSPEPSIA; Start 02/16/19 at 15:00; Stop 02/16/19 at 15:41; Status DC Magnesium Hydroxide (Milk Of Magnesia) 2,400 mg PRN QHS PRN PO CONSTIPATION; Start 02/16/19 at 15:00 Acetaminophen (Tylenol) 650 mg PRN Q4HRS PRN PO PAIN / TEMP; Start 02/16/19 at 15:00; Stop 02/16/19 at 15:41; Status DC Clonazepam (KlonoPIN) 0.5 mg HS PO Last administered on 02/26/19at 19:36; Start 02/16/19 at 21:00 Clonazepam (KlonoPIN) 0.5 mg PRN Q6HRS PRN PO ANXIETY / AGITATION Last administered on 02/21/19at 08:38; Start 02/16/19 at 15:00 Al Hydroxide/Mg Hydroxide (Mylanta Plus Xs) 15 ml PRN AFTMEALHC PRN PO DYSPEPSIA; Start 02/16/19 at 15:00 Alendronate Sodium (Fosamax) 70 mg WEEKLYAC PO Last administered on 02/23/19 08:41; Start 02/23/19 at 07:00 Calcium/Vitamin D (Oscal D 500mg/ 200uts) 2 tab DAILY PO Last administered on 08:23; Start 02/17/19 at 09:00 Cetirizine HCl (ZyrTEC) 10 mg DAILY PO Last administered on 02/26/19 08:23; Start 02/17/19 at 09:00 Docusate Sodium (Colace) 100 mg PRN Q12HR PRN PO CONSTIPATION; Start 02/16/19 at 16:00 Donepezil HCl (Aricept) 5 mg DAILY PO Last administered on 02/26/19 08:23; Start 02/17/19 at 09:00 Famotidine (Pepcid) 10 mg PRN Q12HR PRN PO GI UPSET; Start 02/16/19 at 21:00 Fluoxetine HCl (PROzac) 10 mg DAILY PO Last administered on 02/26/19 08:24; Start 02/17/19 at 09:00 Fluticasone Propionate (Flonase) 2 spray BID NS Last administered on 02/26/19 19:40; Start 02/16/19 at 21:00 Glycerin (Sani-Supp Adult) 1 supp PRN DAILY PRN HI CONSTIPATION; Start at 16:15 Levothyroxine Sodium (Synthroid) 50 mcg DAILY06 PO Last administered on 06:15; Start 02/17/19 at 06:00 Non-Formulary Medication (Mometasone Furoate (Nasonex)) 2 sprays DAILY NS ; Start 02/17/19 at 09:00; Stop 02/17/19 at 09:00; Status DC Montelukast Sodium (Singulair) 10 mg QHS PO Last administered on 02/26/19 19:37 ; Start 02/16/19 at 21:00 Multivitamins/ Calcium (Thera-M Plus) 1 tab DAILY PO Last administered on 08:23; Start 02/17/19 at 09:00 Naproxen (Naprosyn) 500 mg PRN Q12HR PRN PO PAIN Last administered on 3/26/ 19at 12:58; Start 02/16/19 at 16:15 Ketotifen Fumarate (Zaditor) 1 drop BID OU Last administered on 02/26/19 19:40 ; Start 02/16/19 at 21:00 Polyethylene Glycol (miraLAX) 17 gm DAILY PO Last administered on 02/25/19 07: 49; Start 02/17/19 at 09:00 Prazosin HCl (Minipress) 5 mg QHS PO Last administered on 02/26/19 19:37; Start 02/16/19 at 21:00 Risperidone (RisperDAL) 2 mg BID PO Last administered on 02/22/19 07:46; Start 02/16/19 at 21:00; Stop 02/22/19 at 10:54; Status DC Sertraline HCl (Zoloft) 25 mg DAILY PO Last administered on 02/17/19at 08:23; Start 02/17/19 at 09:00; Stop 02/17/19 at 10:17; Status DC Trazodone HCl (Desyrel) 50 mg HS PO Last administered on 02/26/19 19:36; Start 02/16/19 at 21:00 Acetaminophen (Tylenol) 650 mg PRN Q4HRS PRN PO PAIN / TEMP; Start 02/16/19 at 15:45 Prazosin HCl (Minipress) 2 mg HS PO Last administered on 02/26/19 19:38; Start 02/16/19 at 21:00 Divalproex Sodium (Depakote Sprinkles) 125 mg BID PO ; Start 02/18/19 at 09:00; Stop 02/18/19 at 09:00; Status DC Divalproex Sodium (Depakote Sprinkles) 125 mg BIDAFTMEAL PO Last administered on 02/18/19at 08:08; Start 02/18/19 at 09:00; Stop 02/18/19 at 16:40; Status DC Divalproex Sodium (Depakote Sprinkles) 125 mg 0900,1700 PO Last administered on 02/21/19at 16:09; Start 02/18/19 at 17:00; Stop 02/21/19 at 16:35; Status DC Olanzapine (ZyPREXA ZYDIS) 2.5 mg PRN Q2HR PRN PO PSYCHOSIS; Start 02/20/19 at 17:15 Divalproex Sodium (Depakote Sprinkles) 250 mg 0900,1700 PO Last administered on 02/26/19at 16:06; Start 02/21/19 at 17:00 Olanzapine (ZyPREXA) 2.5 mg BIDWMEALS PO Last administered on 02/26/19at 16:06; Start 02/22/19 at 17:00 Active Scripts Active Reported Levothyroxine Sodium 50 Mcg Tablet 50 Mcg PO DAILYAC Clonazepam 0.5 Mg Tablet 0.5 Mg PO PRN Q6HRS PRN Laxative Suppository (Glycerin) 1 Each Supp.rect 1 Each RC PRN DAILY PRN Flonase Allergy Relief (Fluticasone Propionate) 9.9 Ml [place].susp 1 Sprays NS BID Pepcid (Famotidine) 20 Mg Tablet 10 Mg PO PRN Q12HR PRN Multivitamins (Multivitamin) 1 Each Tablet 1 Each PO DAILY Colace (Docusate Sodium) 100 Mg Capsule 100 Mg PO PRN Q12HR PRN Clonazepam 0.5 Mg Tablet 0.5 Mg PO HS Calcium 500 + Vit D 400 Tablet (Calcium Carbonate/Vitamin D3) 1 Each Tablet 2 Each PO DAILY Aricept (Donepezil Hcl) 5 Mg Tablet 5 Mg PO DAILY Fosamax (Alendronate Sodium) 70 Mg Tablet 70 Mg PO WEEKLY Zyrtec (Cetirizine Hcl) 10 Mg Tablet 10 Mg PO DAILY Zoloft (Sertraline Hcl) 25 Mg Tablet 25 Mg PO DAILY Tylenol (Acetaminophen) 325 Mg Tablet 650 Mg PO PRN Q4HRS PRN Trazodone Hcl 50 Mg Tablet 50 Mg PO HS Risperdal (Risperidone) 2 Mg Tablet 2 Mg PO BID Prozac (Fluoxetine Hcl) 10 Mg Capsule 10 Mg PO DAILY Prazosin Hcl 5 Mg Capsule 7 Mg PO HS Miralax (Polyethylene Glycol 3350) 17 Gm Powd.pack 1 Packet PO DAILY Pataday (Olopatadine Hcl) 2.5 Ml Drops 1 Drop EACHEYE DAILY Nasonex (Mometasone Furoate) 17 Gm [place].pump 2 Sprays NS DAILY Naproxen 500 Mg Tablet 500 Mg PO PRN Q12HR PRN Montelukast Sodium Tablet (Montelukast Sodium) 10 Mg Tablet 10 Mg PO HS Maalox Maximum Strength Susp (Mag Hydrox/Al Hydrox/Simeth) 355 Ml Oral.susp 15 Ml PO PRN AFTMEALHC PRN I have reviewed the current psychotropics carefully including drug interactions. Risk benefit ratio favors no change other than as noted in my dictated progress note. Diagnosis: Problems: (1) Anxiety disorder (2) Impulse control disorder (3) Schizoaffective disorder, chronic condition with acute exacerbation JT SPARROW MD Feb 26, 2019 22:49
--- NOTE | 2019-02-26 23:47 | PN ---
DATE: 02/25/2019 PSYCHIATRIC PROGRESS NOTE This late entry 02/25/2019 covers elements not covered in my initial note. SUBJECTIVE: I met with the patient in the evening. The patient slept 9-3/4 hours previous night. I met with her in her room. She has been pleasant, cooperative, slightly over animated at times, but generally better. REVIEW OF SYSTEMS: No CV, , pulmonary, eye, ENT system symptoms on review. 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 MENTAL STATUS EXAM: Reasonably oriented. Speech is coherent, less pressured. Abstraction fair, computation impaired, language function intact, attention span fair. Mood and affect is improved. LABORATORY DATA: Reviewed. IMPRESSION: Unchanged from initial note. PLAN: No change from initial note. MAN Juan Pablo SPARROW MD DR: MINGO/pilar JOB#: [id number] / [id number]
--- NOTE | 2019-02-26 23:48 | PN ---
DATE: 02/24/2019 PSYCHIATRIC PROGRESS NOTE This late entry 02/24/2019 covers elements not covered in my initial note. SUBJECTIVE: I met with the patient in the evening. The patient slept 9 hours previous night. She has been compliant with medications, somewhat withdrawn to her room, which is where I met with her. Otherwise, she has been more appropriate, less labile and anxious. REVIEW OF SYSTEMS: No CV, , pulmonary, eye system symptoms on review. 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 MENTAL STATUS EXAM: Reasonably oriented. Speech is coherent, less pressured. Abstraction fair, computation impaired, language function intact, attention span short. Mood and affect less labile. LABORATORY DATA: Reviewed. IMPRESSION: Unchanged from initial note. PLAN: No change from initial note. MAN Juan Pablo SPARROW MD DR: MINGO/pilar JOB#: [id number] / [id number]
[2019-02-27] MEDS: LEVOTHYROXINE 50 MCG TABLET PO SCH (05:01)
[2019-02-27 06:02] VITALS: BP 98/62
[2019-02-27] MEDS: DIVALPROEX 125 MG CAP.SPRINK PO SCH ×2 (09:18→17:05)
[2019-02-27] MEDS: POLYETHYLENE GLYCOL 3350 17 GM PACKET. PO SCH (09:18)
[2019-02-27] MEDS: CALCIUM CARB/VIT D3 500/200 TABLET PO SCH (09:18)
[2019-02-27] MEDS: KETOTIFEN FUMARATE 0.025% OPHT SOLUTION BOTTLE. OU SCH ×2 (09:18→20:40)
[2019-02-27] MEDS: DONEPEZIL HCL 5 MG TABLET. PO SCH (09:18)
[2019-02-27] MEDS: FLUTICASONE 50MCG/NASAL SPRAY 16GM BOTTLE. NS SCH ×2 (09:18→20:40)
[2019-02-27] MEDS: OLANZapine 2.5 MG TABLET PO SCH ×2 (09:18→17:05)
[2019-02-27] MEDS: CETIRIZINE HCL 10 MG TABLET PO SCH (09:19)
[2019-02-27] MEDS: MULTIVITAMIN with MINERAL TABLET. PO SCH (09:19)
[2019-02-27] MEDS: FLUoxetine HCL 10 MG CAPSULE PO SCH (09:19)
[2019-02-27 15:36] VITALS: BP 150/95
[2019-02-27] MEDS: PRAZOSIN 1 MG CAPSULE. PO SCH (20:09)
[2019-02-27] MEDS: PRAZOSIN 5 MG CAPSULE. PO SCH (20:09)
[2019-02-27] MEDS: MONTELUKAST 10 MG TABLET. PO SCH (20:09)
[2019-02-27] MEDS: traZODone 50 MG TABLET. PO SCH (20:10)
[2019-02-27] MEDS: clonazePAM 0.5 MG TABLET PO SCH (20:40)
--- NOTE | 2019-02-27 22:34 | PDOC ---
Exam Note: Denzel Note: Please also refer to the separate dictated note~for this date of service dictated separately.~Patient seen individually. Discussed the patient with Nursing staff reviewed the chart.~Reviewed interim history and current functioning. Reviewed vital signs,~Labs/ Radiology~and current medications noted below. Continue current treatment with the changes noted in the dictated addendum note Assessment: Vital Signs: Vital Signs Date Time Temp Pulse Resp B/P (MAP) Pulse Ox O2 Delivery O2 Flow Rate FiO2 02/27/19 20:09 80 150/95 02/27/19 15:36 97.9 19 99 Room Air I&O Intake and Output 02/27/19 07:00 Intake Total 1320 ml Balance 1320 ml Intake Oral 1320 ml # Voids 1 Current Medications: Meds: Current Medications Acetaminophen (Tylenol) 650 mg PRN Q6HRS PRN PO PAIN / TEMP; Start 02/16/19 at 15:00; Stop 02/16/19 at 15:40; Status DC Multi-Ingredient Ointment (Analgesic Mittie) 1 dacia PRN QID PRN TP MUSCLE PAIN; Start 02/16/19 at 15:00 Al Hydroxide/Mg Hydroxide (Mylanta Plus Xs) 15 ml PRN AFTMEALHC PRN PO DYSPEPSIA; Start 02/16/19 at 15:00; Stop 02/16/19 at 15:41; Status DC Magnesium Hydroxide (Milk Of Magnesia) 2,400 mg PRN QHS PRN PO CONSTIPATION; Start 02/16/19 at 15:00 Acetaminophen (Tylenol) 650 mg PRN Q4HRS PRN PO PAIN / TEMP; Start 02/16/19 at 15:00; Stop 02/16/19 at 15:41; Status DC Clonazepam (KlonoPIN) 0.5 mg HS PO Last administered on 02/27/19at 20:40; Start 02/16/19 at 21:00 Clonazepam (KlonoPIN) 0.5 mg PRN Q6HRS PRN PO ANXIETY / AGITATION Last administered on 02/21/19at 08:38; Start 02/16/19 at 15:00 Al Hydroxide/Mg Hydroxide (Mylanta Plus Xs) 15 ml PRN AFTMEALHC PRN PO DYSPEPSIA; Start 02/16/19 at 15:00 Alendronate Sodium (Fosamax) 70 mg WEEKLYAC PO Last administered on 02/23/19 08:41; Start 02/23/19 at 07:00 Calcium/Vitamin D (Oscal D 500mg/ 200uts) 2 tab DAILY PO Last administered on 09:18; Start 02/17/19 at 09:00 Cetirizine HCl (ZyrTEC) 10 mg DAILY PO Last administered on 02/27/19 09:19; Start 02/17/19 at 09:00 Docusate Sodium (Colace) 100 mg PRN Q12HR PRN PO CONSTIPATION; Start 02/16/19 at 16:00 Donepezil HCl (Aricept) 5 mg DAILY PO Last administered on 02/27/19 09:18; Start 02/17/19 at 09:00 Famotidine (Pepcid) 10 mg PRN Q12HR PRN PO GI UPSET; Start 02/16/19 at 21:00 Fluoxetine HCl (PROzac) 10 mg DAILY PO Last administered on 02/27/19 09:19; Start 02/17/19 at 09:00 Fluticasone Propionate (Flonase) 2 spray BID NS Last administered on 02/27/19 20:40; Start 02/16/19 at 21:00 Glycerin (Sani-Supp Adult) 1 supp PRN DAILY PRN HI CONSTIPATION; Start at 16:15 Levothyroxine Sodium (Synthroid) 50 mcg DAILY06 PO Last administered on 05:01; Start 02/17/19 at 06:00 Non-Formulary Medication (Mometasone Furoate (Nasonex)) 2 sprays DAILY NS ; Start 02/17/19 at 09:00; Stop 02/17/19 at 09:00; Status DC Montelukast Sodium (Singulair) 10 mg QHS PO Last administered on 02/27/19 20:09 ; Start 02/16/19 at 21:00 Multivitamins/ Calcium (Thera-M Plus) 1 tab DAILY PO Last administered on 09:19; Start 02/17/19 at 09:00 Naproxen (Naprosyn) 500 mg PRN Q12HR PRN PO PAIN Last administered on at 12:58; Start 02/16/19 at 16:15 Ketotifen Fumarate (Zaditor) 1 drop BID OU Last administered on 02/27/19 20:40 ; Start 02/16/19 at 21:00 Polyethylene Glycol (miraLAX) 17 gm DAILY PO Last administered on 02/27/19 09: 18; Start 02/17/19 at 09:00 Prazosin HCl (Minipress) 5 mg QHS PO Last administered on 02/27/19 20:09; Start 02/16/19 at 21:00 Risperidone (RisperDAL) 2 mg BID PO Last administered on 02/22/19 07:46; Start 02/16/19 at 21:00; Stop 02/22/19 at 10:54; Status DC Sertraline HCl (Zoloft) 25 mg DAILY PO Last administered on 02/17/19 08:23; Start 02/17/19 at 09:00; Stop 02/17/19 at 10:17; Status DC Trazodone HCl (Desyrel) 50 mg HS PO Last administered on 02/27/19at 20:10; Start 02/16/19 at 21:00 Acetaminophen (Tylenol) 650 mg PRN Q4HRS PRN PO PAIN / TEMP; Start 02/16/19 at 15:45 Prazosin HCl (Minipress) 2 mg HS PO Last administered on 02/27/19 20:09; Start 02/16/19 at 21:00 Divalproex Sodium (Depakote Sprinkles) 125 mg BID PO ; Start 02/18/19 at 09:00; Stop 02/18/19 at 09:00; Status DC Divalproex Sodium (Depakote Sprinkles) 125 mg BIDAFTMEAL PO Last administered on 02/18/19 08:08; Start 02/18/19 at 09:00; Stop 02/18/19 at 16:40; Status DC Divalproex Sodium (Depakote Sprinkles) 125 mg 0900,1700 PO Last administered on 02/21/19at 16:09; Start 02/18/19 at 17:00; Stop 02/21/19 at 16:35; Status DC Olanzapine (ZyPREXA ZYDIS) 2.5 mg PRN Q2HR PRN PO PSYCHOSIS; Start 02/20/19 at 17:15; Stop 02/27/19 at 16:46; Status DC Divalproex Sodium (Depakote Sprinkles) 250 mg 0900,1700 PO Last administered on 02/27/19at 17:05; Start 02/21/19 at 17:00 Olanzapine (ZyPREXA) 2.5 mg BIDWMEALS PO Last administered on 02/27/19at 17:05; Start 02/22/19 at 17:00 Active Scripts Active Reported Levothyroxine Sodium 50 Mcg Tablet 50 Mcg PO DAILYAC Clonazepam 0.5 Mg Tablet 0.5 Mg PO PRN Q6HRS PRN Laxative Suppository (Glycerin) 1 Each Supp.rect 1 Each RC PRN DAILY PRN Flonase Allergy Relief (Fluticasone Propionate) 9.9 Ml [place].susp 1 Sprays NS BID Pepcid (Famotidine) 20 Mg Tablet 10 Mg PO PRN Q12HR PRN Multivitamins (Multivitamin) 1 Each Tablet 1 Each PO DAILY Colace (Docusate Sodium) 100 Mg Capsule 100 Mg PO PRN Q12HR PRN Clonazepam 0.5 Mg Tablet 0.5 Mg PO HS Calcium 500 + Vit D 400 Tablet (Calcium Carbonate/Vitamin D3) 1 Each Tablet 2 Each PO DAILY Aricept (Donepezil Hcl) 5 Mg Tablet 5 Mg PO DAILY Fosamax (Alendronate Sodium) 70 Mg Tablet 70 Mg PO WEEKLY Zyrtec (Cetirizine Hcl) 10 Mg Tablet 10 Mg PO DAILY Zoloft (Sertraline Hcl) 25 Mg Tablet 25 Mg PO DAILY Tylenol (Acetaminophen) 325 Mg Tablet 650 Mg PO PRN Q4HRS PRN Trazodone Hcl 50 Mg Tablet 50 Mg PO HS Risperdal (Risperidone) 2 Mg Tablet 2 Mg PO BID Prozac (Fluoxetine Hcl) 10 Mg Capsule 10 Mg PO DAILY Prazosin Hcl 5 Mg Capsule 7 Mg PO HS Miralax (Polyethylene Glycol 3350) 17 Gm Powd.pack 1 Packet PO DAILY Pataday (Olopatadine Hcl) 2.5 Ml Drops 1 Drop EACHEYE DAILY Nasonex (Mometasone Furoate) 17 Gm [place].pump 2 Sprays NS DAILY Naproxen 500 Mg Tablet 500 Mg PO PRN Q12HR PRN Montelukast Sodium Tablet (Montelukast Sodium) 10 Mg Tablet 10 Mg PO HS Maalox Maximum Strength Susp (Mag Hydrox/Al Hydrox/Simeth) 355 Ml Oral.susp 15 Ml PO PRN AFTMEALHC PRN I have reviewed the current psychotropics carefully including drug interactions. Risk benefit ratio favors no change other than as noted in my dictated progress note. Diagnosis: Problems: (1) Anxiety disorder (2) Impulse control disorder (3) Schizoaffective disorder, chronic condition with acute exacerbation JT SPARROW MD Feb 27, 2019 22:34
[2019-02-28] MEDS ORDERED: DIVA125C2 PO (00:59)
[2019-02-28] MEDS ORDERED: OLAN2.5T3 PO (01:00)
[2019-02-28] MEDS ORDERED: OLAN5TAB5 PO (01:01)
[2019-02-28] MEDS ORDERED: METH29OI TP (01:02)
[2019-02-28] MEDS ORDERED: MAGN2400 PO (01:03)
--- NOTE | 2019-02-28 04:10 | PN ---
DATE: 02/26/2019 PSYCHOLOGICAL PROGRESS NOTE This late entry for 02/26/2019 covers elements not covered in my initial note. SUBJECTIVE: I met with the patient in the evening. The patient slept 8-1/4 hours previous night. I met with her in her room. She does have some short-term memory deficits, even though she is reasonably oriented, and when I questioned her, she did not seem to remember our visit from the day before. Otherwise, she is less manic, grandiose, less labile. REVIEW OF SYSTEMS: Ambulation impaired, but she ambulates reasonably with her artificial limb. REVIEW OF SYSTEMS: No CV, , pulmonary, eye system symptoms on review. MENTAL STATUS EXAM: The patient is reasonably oriented. Speech is coherent, still somewhat pressured at times, but better than before. Abstraction fair, computation impaired, language function intact, attention span short. Mood and affect less labile. LABORATORY DATA: Reviewed. IMPRESSION: Unchanged from initial note. PLAN: No change from initial note. We will repeat valproic acid level and adjust further. JT SPARROW MD DR: MINGO/pilar JOB#: [id number] / [id number]
[2019-02-28] MEDS: LEVOTHYROXINE 50 MCG TABLET PO SCH (05:36)
[2019-02-28 05:41] VITALS: BP 112/77
[2019-02-28] MEDS: OLANZapine 2.5 MG TABLET PO SCH (07:39)
[2019-02-28] MEDS: MULTIVITAMIN with MINERAL TABLET. PO SCH (07:40)
[2019-02-28] MEDS: POLYETHYLENE GLYCOL 3350 17 GM PACKET. PO SCH (07:40)
[2019-02-28] MEDS: DONEPEZIL HCL 5 MG TABLET. PO SCH (07:40)
[2019-02-28] MEDS: CETIRIZINE HCL 10 MG TABLET PO SCH (07:40)
[2019-02-28] MEDS: CALCIUM CARB/VIT D3 500/200 TABLET PO SCH (07:40)
[2019-02-28] MEDS: DIVALPROEX 125 MG CAP.SPRINK PO SCH (07:40)
[2019-02-28] MEDS: FLUoxetine HCL 10 MG CAPSULE PO SCH (07:40)
[2019-02-28] MEDS: KETOTIFEN FUMARATE 0.025% OPHT SOLUTION BOTTLE. OU SCH (07:45)
[2019-02-28] MEDS: FLUTICASONE 50MCG/NASAL SPRAY 16GM BOTTLE. NS SCH (07:45)
--- NOTE | 2019-02-28 17:56 | DS ---
DATE OF DISCHARGE: 02/28/2019 DISCHARGE SUMMARY/PSYCHIATRIC PROGRESS NOTE This note covers elements not covered in my initial note of 02/28/2019. REASON FOR ADMISSION: Please refer to the admission history for details. Briefly, the patient is a 68-year-old female referred to us from [facility] by her primary care physician on account of worsening of her Schizoaffective disorder, bipolar type, with marked anxiety, obsessive nursing, panic attacks, hallucinating, refusing medications, yelling at staff, delusional and forgetful. She had failed outpatient psychiatric interventions. SIGNIFICANT FINDINGS AND CLINICAL COURSE: Following admission, the patient was seen daily individually by myself from a psychiatric standpoint, medical followup with Dr. Edawrds. She was quite anxious, restless, labile in her mood and psychotic at admission. Adjustments were made in her psychotropics. She seemed to respond to a combination of Prozac 10 mg a day, Aricept 5 mg daily, trazodone 50 mg at bedtime, Zyprexa 2.5 mg b.i.d., Klonopin 0.5 mg at bedtime plus p.r.n., Depakote Sprinkles 250 b.i.d. with a level of 43. Despite being subtherapeutic, she was doing better and we were adjusting the Depakote. Zyprexa was p.r.n., prazosin 7 mg p.o. at bedtime for questionable symptoms of posttraumatic stress. Gradually mood appeared to improve. She was much more cooperative, pleasant amiable. No suicidal or homicidal ideation prior to discharge. REVIEW OF SYSTEMS: Prior to discharge on 02/28/2019, No CV, , pulmonary, eye system symptoms on review. MENTAL STATUS EXAM: Oriented to herself and situation. Speech coherent, less pressured. Abstraction fair, computation impaired, language function intact. Attention span improved. Mood and affect improved. No suicidal or homicidal ideation. FINAL DIAGNOSES: Schizoaffective disorder, bipolar type, mixed with psychotic features, in partial remission; anxiety disorder, unspecified; impulse control disorder, rule out post-traumatic stress disorder. Rest unchanged from admission. DISCHARGE MEDICATIONS: Please refer to the MRAD. DISCHARGE INSTRUCTIONS: Outpatient psychiatric and medical followup at the [facility] and CBC, CMP, ammonia level, and valproic acid level should be checked every 3 months while she is on Depakote. Time for discharge day management greater than 30 minutes. JT SPARROW MD DR: MINGO/pilar JOB#: [id number] / [id number]
--- NOTE | 2019-02-28 18:44 | PDOC ---
Exam Note: Denzel Note: Please also refer to the separate dictated note~for this date of service dictated separately.~Patient seen individually. Discussed the patient with Nursing staff reviewed the chart.~Reviewed interim history and current functioning. Reviewed vital signs,~Labs/ Radiology~and current medications noted below. Continue current treatment with the changes noted in the dictated addendum note Assessment: Vital Signs: Vital Signs Date Time Temp Pulse Resp B/P (MAP) Pulse Ox O2 Delivery O2 Flow Rate FiO2 02/28/19 05:41 98.9 90 18 112/77 (89) 98 02/27/19 15:36 Room Air I&O Intake and Output 02/28/19 07:00 Intake Total 1320 ml Balance 1320 ml Intake Oral 1200 ml Tube Feeding 120 ml Current Medications: Meds: Current Medications Acetaminophen (Tylenol) 650 mg PRN Q6HRS PRN PO PAIN / TEMP; Start 02/16/19 at 15:00; Stop 02/16/19 at 15:40; Status DC Multi-Ingredient Ointment (Analgesic [place]) 1 geovanna PRN QID PRN TP MUSCLE PAIN; Start 02/16/19 at 15:00; Stop 02/28/19 at 11:49; Status DC Al Hydroxide/Mg Hydroxide (Mylanta Plus Xs) 15 ml PRN AFTMEALHC PRN PO DYSPEPSIA; Start 02/16/19 at 15:00; Stop 02/16/19 at 15:41; Status DC Magnesium Hydroxide (Milk Of Magnesia) 2,400 mg PRN QHS PRN PO CONSTIPATION; Start 02/16/19 at 15:00; Stop 02/28/19 at 11:49; Status DC Acetaminophen (Tylenol) 650 mg PRN Q4HRS PRN PO PAIN / TEMP; Start 02/16/19 at 15:00; Stop 02/16/19 at 15:41; Status DC Clonazepam (KlonoPIN) 0.5 mg HS PO Last administered on 02/27/19at 20:40; Start 02/16/19 at 21:00; Stop 02/28/19 at 11:49; Status DC Clonazepam (KlonoPIN) 0.5 mg PRN Q6HRS PRN PO ANXIETY / AGITATION Last administered on 02/21/19at 08:38; Start 02/16/19 at 15:00; Stop 02/28/19 at 11:49 ; Status DC Al Hydroxide/Mg Hydroxide (Mylanta Plus Xs) 15 ml PRN AFTMEALHC PRN PO DYSPEPSIA; Start 02/16/19 at 15:00; Stop 02/28/19 at 11:49; Status DC Alendronate Sodium (Fosamax) 70 mg WEEKLYAC PO Last administered on 02/23/19at 08:41; Start 02/23/19 at 07:00; Stop 02/28/19 at 11:49; Status DC Calcium/Vitamin D (Oscal D 500mg/ 200uts) 2 tab DAILY PO Last administered on 07:40; Start 02/17/19 at 09:00; Stop 02/28/19 at 11:49; Status DC Cetirizine HCl (ZyrTEC) 10 mg DAILY PO Last administered on 02/28/19at 07:40; Start 02/17/19 at 09:00; Stop 02/28/19 at 11:49; Status DC Docusate Sodium (Colace) 100 mg PRN Q12HR PRN PO CONSTIPATION; Start 02/16/19 at 16:00; Stop 02/28/19 at 11:49; Status DC Donepezil HCl (Aricept) 5 mg DAILY PO Last administered on 02/28/19at 07:40; Start 02/17/19 at 09:00; Stop 02/28/19 at 11:49; Status DC Famotidine (Pepcid) 10 mg PRN Q12HR PRN PO GI UPSET; Start 02/16/19 at 21:00; Stop 02/28/19 at 11:49; Status DC Fluoxetine HCl (PROzac) 10 mg DAILY PO Last administered on 02/28/19at 07:40; Start 02/17/19 at 09:00; Stop 02/28/19 at 11:49; Status DC Fluticasone Propionate (Flonase) 2 spray BID NS Last administered on 02/28/19at 07:45; Start 02/16/19 at 21:00; Stop 02/28/19 at 11:49; Status DC Glycerin (Sani-Supp Adult) 1 supp PRN DAILY PRN NC CONSTIPATION; Start at 16:15; Stop 02/28/19 at 11:49; Status DC Levothyroxine Sodium (Synthroid) 50 mcg DAILY06 PO Last administered on 05:36; Start 02/17/19 at 06:00; Stop 02/28/19 at 11:49; Status DC Non-Formulary Medication (Mometasone Furoate (Nasonex)) 2 sprays DAILY NS ; Start 02/17/19 at 09:00; Stop 02/17/19 at 09:00; Status DC Montelukast Sodium (Singulair) 10 mg QHS PO Last administered on 02/27/19 20:09 ; Start 02/16/19 at 21:00; Stop 02/28/19 at 11:49; Status DC Multivitamins/ Calcium (Thera-M Plus) 1 tab DAILY PO Last administered on 07:40; Start 02/17/19 at 09:00; Stop 02/28/19 at 11:49; Status DC Naproxen (Naprosyn) 500 mg PRN Q12HR PRN PO PAIN Last administered on at 12:58; Start 02/16/19 at 16:15; Stop 02/28/19 at 11:49; Status DC Ketotifen Fumarate (Zaditor) 1 drop BID OU Last administered on 02/28/19 07:45 ; Start 02/16/19 at 21:00; Stop 02/28/19 at 11:49; Status DC Polyethylene Glycol (miraLAX) 17 gm DAILY PO Last administered on 02/28/19 07: 40; Start 02/17/19 at 09:00; Stop 02/28/19 at 11:49; Status DC Prazosin HCl (Minipress) 5 mg QHS PO Last administered on 02/27/19 20:09; Start 02/16/19 at 21:00; Stop 02/28/19 at 11:49; Status DC Risperidone (RisperDAL) 2 mg BID PO Last administered on 02/22/19 07:46; Start 02/16/19 at 21:00; Stop 02/22/19 at 10:54; Status DC Sertraline HCl (Zoloft) 25 mg DAILY PO Last administered on 02/17/19 08:23; Start 02/17/19 at 09:00; Stop 02/17/19 at 10:17; Status DC Trazodone HCl (Desyrel) 50 mg HS PO Last administered on 02/27/19at 20:10; Start 02/16/19 at 21:00; Stop 02/28/19 at 11:49; Status DC Acetaminophen (Tylenol) 650 mg PRN Q4HRS PRN PO PAIN / TEMP; Start 02/16/19 at 15:45; Stop 02/28/19 at 11:49; Status DC Prazosin HCl (Minipress) 2 mg HS PO Last administered on 02/27/19at 20:09; Start 02/16/19 at 21:00; Stop 02/28/19 at 11:49; Status DC Divalproex Sodium (Depakote Sprinkles) 125 mg BID PO ; Start 02/18/19 at 09:00; Stop 02/18/19 at 09:00; Status DC Divalproex Sodium (Depakote Sprinkles) 125 mg BIDAFTMEAL PO Last administered on 02/18/19at 08:08; Start 02/18/19 at 09:00; Stop 02/18/19 at 16:40; Status DC Divalproex Sodium (Depakote Sprinkles) 125 mg 0900,1700 PO Last administered on 02/21/19at 16:09; Start 02/18/19 at 17:00; Stop 02/21/19 at 16:35; Status DC Olanzapine (ZyPREXA ZYDIS) 2.5 mg PRN Q2HR PRN PO PSYCHOSIS; Start 02/20/19 at 17:15; Stop 02/27/19 at 16:46; Status DC Divalproex Sodium (Depakote Sprinkles) 250 mg 0900,1700 PO Last administered on 02/28/19at 07:40; Start 02/21/19 at 17:00; Stop 02/28/19 at 11:49; Status DC Olanzapine (ZyPREXA) 2.5 mg BIDWMEALS PO Last administered on 02/28/19at 07:39; Start 02/22/19 at 17:00; Stop 02/28/19 at 11:49; Status DC Active Scripts Active Reported Milk Of Magnesia (Magnesium Hydroxide) 2,400 Mg/10 Ml Oral.susp 2,400 Mg PO PRN QHS PRN Analgesic [place] (Methyl Salicylate/Menthol) 28 Gm Oint...g. 1 Geovanna TP PRN QID PRN Zyprexa Zydis (Olanzapine) 5 Mg Tab.rapdis 2.5 Mg PO PRN Q2HR PRN MDD 10mg/24hr Zyprexa (Olanzapine) 2.5 Mg Tablet 2.5 Mg PO BIDWMEALS Depakote Sprinkle (Divalproex Sodium) 125 Mg Cap.sprink 250 Mg PO BID@0900,1700 Levothyroxine Sodium 50 Mcg Tablet 50 Mcg PO DAILYAC Clonazepam 0.5 Mg Tablet 0.5 Mg PO PRN Q6HRS PRN Laxative Suppository (Glycerin) 1 Each Supp.rect 1 Each RC PRN DAILY PRN Flonase Allergy Relief (Fluticasone Propionate) 9.9 Ml [place].susp 2 Sprays NS BID Pepcid (Famotidine) 20 Mg Tablet 10 Mg PO PRN Q12HR PRN Multivitamins (Multivitamin) 1 Each Tablet 1 Each PO DAILY Colace (Docusate Sodium) 100 Mg Capsule 100 Mg PO PRN Q12HR PRN Clonazepam 0.5 Mg Tablet 0.5 Mg PO HS Calcium 500 + Vit D 400 Tablet (Calcium Carbonate/Vitamin D3) 1 Each Tablet 2 Each PO DAILY Aricept (Donepezil Hcl) 5 Mg Tablet 5 Mg PO DAILY Fosamax (Alendronate Sodium) 70 Mg Tablet 70 Mg PO WEEKLY Zyrtec (Cetirizine Hcl) 10 Mg Tablet 10 Mg PO DAILY Tylenol (Acetaminophen) 325 Mg Tablet 650 Mg PO PRN Q4HRS PRN Trazodone Hcl 50 Mg Tablet 50 Mg PO HS Prozac (Fluoxetine Hcl) 10 Mg Capsule 10 Mg PO DAILY Prazosin Hcl 5 Mg Capsule 7 Mg PO HS Miralax (Polyethylene Glycol 3350) 17 Gm Powd.pack 1 Packet PO DAILY [place] (Olopatadine Hcl) 2.5 Ml Drops 1 Drop EACHEYE DAILY Naproxen 500 Mg Tablet 500 Mg PO PRN Q12HR PRN Montelukast Sodium Tablet (Montelukast Sodium) 10 Mg Tablet 10 Mg PO HS Maalox Maximum Strength Susp (Mag Hydrox/Al Hydrox/Simeth) 355 Ml Oral.susp 15 Ml PO PRN AFTMEALHC PRN I have reviewed the current psychotropics carefully including drug interactions. Risk benefit ratio favors no change other than as noted in my dictated progress note. Diagnosis: Problems: (1) Schizoaffective disorder, chronic condition with acute exacerbation (2) Impulse control disorder (3) Anxiety disorder JT SPARROW MD Feb 28, 2019 18:44
--- NOTE | 2019-02-28 20:31 | PN ---
DATE: 02/27/2019 PSYCHIATRIC PROGRESS NOTE This late entry 02/27/2019 covers elements not covered in my initial note. SUBJECTIVE: I met with the patient on the evening of 02/27/2019 in her room. The patient slept 6-1/2 hours previous night. She has been fairly appropriate, interactive. group home insists that the Zyprexa p.r.n. be discontinued. She has not needed it and we will stop it. REVIEW OF SYSTEMS: No CV, , pulmonary, eye, ENT system symptoms on review. MENTAL STATUS EXAM: Oriented to herself and situation. Speech coherent, a little pressured, but much improved. Abstraction fair, computation impaired, language function intact, attention span short. Mood and affect improved. No suicidal or homicidal ideation. LABORATORY DATA: Reviewed. IMPRESSION: Unchanged from initial note. PLAN: No change from initial note with discharge on 02/28/2019. JT SPARROW MD DR: MINGO/pilar JOB#: [id number] / [id number]
== END 2019-02-28 11:45 | DRG 885 ==
LOC: ER 11:38 → GEROPSY 14:44
PROVIDERS: ADMIT Psychiatry & Neurology Psychiatry; ATTEND Psychiatry & Neurology Psychiatry
DX: F25.0 Schizoaffective disorder, bipolar type (principal); E87.1 Hypo-osmolality and hyponatremia; F41.0 Panic disorder [episodic paroxysmal anxiety]; F63.9 Impulse disorder, unspecified; M19.90 Unspecified osteoarthritis, unspecified site; E03.9 Hypothyroidism, unspecified; K21.9 Gastro-esophageal reflux disease without esophagitis; M81.0 Age-related osteoporosis without current pathological fracture; Z79.899 Other long term (current) drug therapy; Z81.8 Family history of other mental and behavioral disorders; Z89.512 Acquired absence of left leg below knee; Z91.81 History of falling
CPT/HCPCS: 36415; 80053; 80061; 80164; 81001; 82306; 83036; 83540; 83550; 83735; 84436; 84443; 84480; 85025; 86592; 93005; 99285-25